=== PATIENT | female | born 1945 | race Caucasian/White ===

== ENCOUNTER 2018-04-02 18:08 | Emergency (ER) | payer MEDICARE, MEDICAID, SELFPAY ==
[2018-04-02 18:14] VITALS: BP 166/82; PULSE 87; RESP 16; TEMP 37.2; O2SAT 97; BMI 29.6
[2018-04-02 18:29] VITALS: BP 166/82; PULSE 80; RESP 16; O2SAT 97
--- NOTE | 2018-04-02 18:29 | DI.RAD.S_ITS ---
PROCEDURE: XR CHEST 2V INDICATIONS: 72 year-old female with fever and recent bronchitis. TECHNIQUE: 2 views of the chest were acquired. COMPARISON: [facility], CR, XR CHEST 2VW, 04/01/2017, 14:24. [facility], CR, CHEST 1 VIEW, 07/31/2016, 14:36. [facility], CR, CHEST 2 VIEW, 12/04/2014, 19:23. FINDINGS: Surgical changes and devices: None. Lungs and pleura: No pleural effusions or pneumothorax. Lungs are clear. Mediastinum: Mediastinal contours are normal. Heart size is normal. Bones and chest wall: No suspicious bony abnormalities. Soft tissues appear unremarkable. IMPRESSION: No acute cardiopulmonary disease. Dictated by: Jakub De Luna M.D. on 04/02/2018 at 19:08 Approved by: Jakub De Luna M.D. on 04/02/2018 at 19:09
--- NOTE | 2018-04-02 18:30 | ED.CHESTPAIN ---
HPI - Chest Pain <ODILON Espinoza - Last Filed: 04/02/18 22:35> General Chief Complaint: Chest Pain Stated Complaint: chest pains,possible pneumonia Time Seen by Provider: 04/02/18 18:30 History of Present Illness HPI narrative: 72-year-old female here for complaint of having cough over the last several days. She was seen by her primary care provider and she was treated with cefuroxime. She reports that the cough has actually improved over the past couple of days with less productive cough. She also reports that she had a fever over the last several days and the fever has also improved today. She is here due to complaint of feeling ill such as dizziness with nausea and some weakness. She reports at time of exam and she is actually feeling better. She is able speak in full sentences. No acute distress. She states she is tolerating fluids however she has not been eating much over the past couple of days due to the nausea. Related Data Home Medications Medication Instructions Recorded Confirmed guaifenesin [Mucinex] 600 mg PO Q12HP PRN #0 ter 07/31/16 04/02/18 cefuroxime axetil 500 mg PO BID 04/02/18 04/02/18 levothyroxine 25 mcg PO DAILY 04/02/18 04/02/18 Previous Rx's Medication Instructions Recorded ondansetron HCl [Zofran] 4 mg PO Q6H PRN #5 tab 04/02/18 Allergies Allergy/AdvReac Type Severity Reaction Status Date / Time ofloxacin Allergy Verified 04/02/18 18:31 ANTIBIOTIC FOR EYE Allergy Unknown Uncoded 02/12/18 13:03 Review of Systems <ODILON Espinoza - Last Filed: 04/02/18 22:35> Constitutional Reports fever(s) and Reports weakness Eyes Denies change in vision, Denies eye discharge, Denies irritation and Denies loss of vision ENT Ears, Nose, Mouth, and Throat: Reports dizziness and Reports nasal congestion Cardiovascular Denies chest pain, Denies irregular heart rhythm, Denies lightheadedness, Denies palpitations and Denies orthopnea Respiratory Reports cough Gastrointestinal Gastrointestinal: Denies abdominal pain, Denies change in bowel habits, Denies diarrhea, Denies nausea and Denies vomiting Genitourinary Denies hematuria, Denies flank pain, Denies urinary incontinence and Denies urinary urgency Musculoskeletal Denies back pain, Denies muscle weakness, Denies numbness and Denies tingling Integumentary/Breasts Denies pruritus, Denies erythema, Denies rash and Denies wounds Neurologic Denies confusion, Reports dizziness, Denies loss of vision, Denies numbness, Denies tingling and Reports weakness Psychiatric Denies anxiety, Denies confusion, Denies depression, Denies homicidal ideation and Denies suicidal ideation Endocrine Denies palpitations Exam <ODILON Espinoza - Last Filed: 04/02/18 22:35> Initial Vital Signs Initial Vital Signs: Vital Signs Temperature 98.9 F 04/02/18 18:14 Pulse Rate 87 04/02/18 18:14 Respiratory Rate 16 04/02/18 18:14 Blood Pressure 166/82 H 04/02/18 18:14 Pulse Oximetry 97 04/02/18 18:14 Const General: cooperative and well developed Nutritional Appearance: well nourished Orientation: alert, awake, oriented x3 and not confused HENMT Mouth: oral mucosae normal and oropharynx normal Eyes Conjunctivae: conjunctivae normal Sclera: sclerae normal Pupils: PERRL EOM: EOM intact bilaterally Resp Effort & Inspection: normal respiratory effort, able to speak in complete sentences, no respiratory distress and no use of accessory muscles Auscultation: clear to auscultation bilaterally, no rales, no rhonchi and no wheezes Cardio Rate: regular rate Rhythm: regular rhythm Heart Sounds: no click, no gallops, no murmurs and no rubs Skin General: no rashes or lesions noted, No jaundice and No petechiae Neuro General: alert, oriented x3, gait normal and no focal motor deficits Speech: speech normal Extrem General: full ROM, no clubbing, cyanosis or edema, no pedal edema and no calf tenderness <Amarjit Cuellar DO - Last Filed: 04/02/18 22:49> Initial Vital Signs Initial Vital Signs: Vital Signs Temperature 98.9 F 04/02/18 18:14 Pulse Rate 87 04/02/18 18:14 Respiratory Rate 16 04/02/18 18:14 Blood Pressure 166/82 H 04/02/18 18:14 Pulse Oximetry 97 04/02/18 18:14 Course <ODILON Espinoza - Last Filed: 04/02/18 22:35> Orders Ordered: ED Orders 04/02/18 18:29 Chest [XR chest 2V] Stat 04/02/18 18:30 EKG-12 Lead Stat 04/02/18 18:32 CT head/brain wo con Stat 04/02/18 18:40 B Type Natriuretic Peptide Stat Complete Blood Count AUTO DIFF Stat Comprehensive Metabolic Panel Stat Lactate (Lactic Acid) Stat Lipase Stat Partial Thromboplastin Time Stat Procalcitonin Stat Prothrombin Time INR Stat Troponin with CK Cardiac Panel Stat 04/02/18 19:40 Blood Culture Stat Discontinued Medications Sodium Chloride (Normal Saline 0.9%) 1,000 mls @ 1,000 mls/hr IV BOLUS ONE Stop: 04/02/18 19:28 Last Infusion: 04/02/18 20:00 Dose: 0 mls/hr Admin: 04/02/18 18:44 Dose: 1,000 mls/hr Ondansetron HCl (Zofran) 4 mg IV NOW ONE Stop: 04/02/18 18:57 Last Admin: 04/02/18 18:59 Dose: 4 mg Ondansetron HCl (Zofran Odt Prepack) 1 bottle MISC SEEINSTR ONE Stop: 04/02/18 21:29 Last Admin: 04/02/18 21:45 Dose: 1 bottle Vital Signs - 8 hr 04/02/18 18:14 04/02/18 18:29 04/02/18 19:30 Temperature 98.9 F Pulse Rate 87 80 60 Respiratory Rate 16 16 Blood Pressure 166/82 H Blood Pressure [Left Arm] 166/82 H 142/57 H Pulse Oximetry 97 97 97 04/02/18 20:46 04/02/18 22:03 Temperature Pulse Rate 61 74 Respiratory Rate 15 15 Blood Pressure 149/79 H Blood Pressure [Left Arm] 153/80 H Pulse Oximetry 96 99 <Amarjit Cuellar DO - Last Filed: 04/02/18 22:49> Orders Ordered: ED Orders 04/02/18 18:29 Chest [XR chest 2V] Stat 04/02/18 18:30 EKG-12 Lead Stat 04/02/18 18:32 CT head/brain wo con Stat 04/02/18 18:40 B Type Natriuretic Peptide Stat Complete Blood Count AUTO DIFF Stat Comprehensive Metabolic Panel Stat Lactate (Lactic Acid) Stat Lipase Stat Partial Thromboplastin Time Stat Procalcitonin Stat Prothrombin Time INR Stat Troponin with CK Cardiac Panel Stat 04/02/18 19:40 Blood Culture Stat Discontinued Medications Sodium Chloride (Normal Saline 0.9%) 1,000 mls @ 1,000 mls/hr IV BOLUS ONE Stop: 04/02/18 19:28 Last Infusion: 04/02/18 20:00 Dose: 0 mls/hr Admin: 04/02/18 18:44 Dose: 1,000 mls/hr Ondansetron HCl (Zofran) 4 mg IV NOW ONE Stop: 04/02/18 18:57 Last Admin: 04/02/18 18:59 Dose: 4 mg Ondansetron HCl (Zofran Odt Prepack) 1 bottle MISC SEEINSTR ONE Stop: 04/02/18 21:29 Last Admin: 04/02/18 21:45 Dose: 1 bottle Vital Signs - 8 hr 04/02/18 18:14 04/02/18 18:29 04/02/18 19:30 Temperature 98.9 F Pulse Rate 87 80 60 Respiratory Rate 16 16 Blood Pressure 166/82 H Blood Pressure [Left Arm] 166/82 H 142/57 H Pulse Oximetry 97 97 97 04/02/18 20:46 04/02/18 22:03 Temperature Pulse Rate 61 74 Respiratory Rate 15 15 Blood Pressure 149/79 H Blood Pressure [Left Arm] 153/80 H Pulse Oximetry 96 99 MDM - Chest Pain <ODILON Espinoza - Last Filed: 04/02/18 22:35> Lab Data Result diagrams: 04/02/18 18:40 04/02/18 18:40 Lab Results 04/02/18 04/02/18 04/02/18 Range/Units 18:40 18:40 18:40 WBC 6.1 (4.5-11.0) X10^3/uL RBC 4.84 (4.0-5.2) X10^6/uL Hgb 14.9 (12.0-16.0) g/dL Hct 43.4 (36-46) % MCV 89.7 (80-100) fL MCH 30.8 (26-34) PG MCHC 34.3 (30-36) % RDW 13.3 (11.6-14.8) % Plt Count 260 (150-400) X10^3/uL Neut % (Auto) 56.1 (50-75) % Lymph % (Auto) 35.6 (25-40) % [place] % (Auto) 5.9 (3-14) % Eos % (Auto) 1.8 L (2-4) % Baso % (Auto) 0.6 (0-2) % Neut # (Auto) 3400 (0426-9720) /uL PT 12.1 (10.1-12.7) SECONDS INR 1.1 (0.9-1.3) APTT 30 (26.4-36.2) SECONDS Sodium (137-145) mmol/L Potassium (3.4-5.1) mmol/L Chloride (98-107) mmol/L Carbon Dioxide (22-32) mmol/L BUN (7-17) mg/dL Creatinine (0.52-1.04) mg/dL Estimated GFR (>60) mL/min BUN/Creatinine Ratio (6-22) Glucose (80-110) mg/dL Lactate (0.7-2.1) mmol/L Calcium (8.4-10.2) mg/dL Total Bilirubin (0.2-1.3) mg/dL AST (14-36) IU/L ALT (9-52) IU/L Alkaline Phosphatase (38-126) U/L Total Creatine Kinase (30-135) U/L Troponin I (0.01-0.034) ng/mL B-Natriuretic Peptide (<29.3) Total Protein (6.3-8.2) g/dL Albumin (3.5-5.0) g/dL Globulin (1.7-4.1) g/dL Albumin/Globulin Ratio (1.0-2.8) Lipase (23-300) U/L Procalcitonin < 0.05 (<0.5) ng/mL 04/02/18 04/02/18 04/02/18 Range/Units 18:40 18:40 18:40 WBC (4.5-11.0) X10^3/uL RBC (4.0-5.2) X10^6/uL Hgb (12.0-16.0) g/dL Hct (36-46) % MCV (80-100) fL MCH (26-34) PG MCHC (30-36) % RDW (11.6-14.8) % Plt Count (150-400) X10^3/uL Neut % (Auto) (50-75) % Lymph % (Auto) (25-40) % [place] % (Auto) (3-14) % Eos % (Auto) (2-4) % Baso % (Auto) (0-2) % Neut # (Auto) (2356-6916) /uL PT (10.1-12.7) SECONDS INR (0.9-1.3) APTT (26.4-36.2) SECONDS Sodium 138 (137-145) mmol/L Potassium 3.9 (3.4-5.1) mmol/L Chloride 102 (98-107) mmol/L Carbon Dioxide 23 (22-32) mmol/L BUN 13 (7-17) mg/dL Creatinine 0.70 (0.52-1.04) mg/dL Estimated GFR > 60.0 (>60) mL/min BUN/Creatinine Ratio 18.6 (6-22) Glucose 106 (80-110) mg/dL Lactate 1.1 (0.7-2.1) mmol/L Calcium 9.7 (8.4-10.2) mg/dL Total Bilirubin 0.9 (0.2-1.3) mg/dL AST 34 (14-36) IU/L ALT 23 (9-52) IU/L Alkaline Phosphatase 85 (38-126) U/L Total Creatine Kinase 53 (30-135) U/L Troponin I < 0.012 (0.01-0.034) ng/mL B-Natriuretic Peptide (<29.3) Total Protein 7.6 (6.3-8.2) g/dL Albumin 4.1 (3.5-5.0) g/dL Globulin 3.5 (1.7-4.1) g/dL Albumin/Globulin Ratio 1.2 (1.0-2.8) Lipase 105 (23-300) U/L Procalcitonin (<0.5) ng/mL 04/02/18 Range/Units 18:40 WBC (4.5-11.0) X10^3/uL RBC (4.0-5.2) X10^6/uL Hgb (12.0-16.0) g/dL Hct (36-46) % MCV (80-100) fL MCH (26-34) PG MCHC (30-36) % RDW (11.6-14.8) % Plt Count (150-400) X10^3/uL Neut % (Auto) (50-75) % Lymph % (Auto) (25-40) % [place] % (Auto) (3-14) % Eos % (Auto) (2-4) % Baso % (Auto) (0-2) % Neut # (Auto) (7511-7025) /uL PT (10.1-12.7) SECONDS INR (0.9-1.3) APTT (26.4-36.2) SECONDS Sodium (137-145) mmol/L Potassium (3.4-5.1) mmol/L Chloride (98-107) mmol/L Carbon Dioxide (22-32) mmol/L BUN (7-17) mg/dL Creatinine (0.52-1.04) mg/dL Estimated GFR (>60) mL/min BUN/Creatinine Ratio (6-22) Glucose (80-110) mg/dL Lactate (0.7-2.1) mmol/L Calcium (8.4-10.2) mg/dL Total Bilirubin (0.2-1.3) mg/dL AST (14-36) IU/L ALT (9-52) IU/L Alkaline Phosphatase (38-126) U/L Total Creatine Kinase (30-135) U/L Troponin I (0.01-0.034) ng/mL B-Natriuretic Peptide 85.2 (<29.3) Total Protein (6.3-8.2) g/dL Albumin (3.5-5.0) g/dL Globulin (1.7-4.1) g/dL Albumin/Globulin Ratio (1.0-2.8) Lipase (23-300) U/L Procalcitonin (<0.5) ng/mL Imaging Data CT scan - head: Radiologist's impression: PROCEDURE: CT HEAD/BRAIN WO CON INDICATIONS: 72 year-old female with weakness and dizziness for one week. TECHNIQUE: Noncontrast 4.5 mm thick angled axial sections acquired from the foramen magnum to the vertex, with coronal and sagittal reformats. For radiation dose reduction, the following was used: automated exposure control, adjustment of mA and/or kV according to patient size. COMPARISON: None. FINDINGS: Image quality: Excellent. CSF spaces: Basal cisterns are patent. No extra-axial fluid collections. The ventricles are symmetric in size and shape. Brain: No intracranial bleeds. A heterogeneously calcified 8 mm extra axial mass is situated superior to the left frontal lobe convexity, best seen on coronal image 27 and sagittal image 15. There are mild periventricular white matter chronic small vessel ischemic changes. There is intracranial internal carotid artery atherosclerosis. Skull and face: Calvarium and visualized facial bones appear intact, without suspicious lesions. Sinuses: Visualized sinuses and mastoids are clear. IMPRESSION: 1. No acute intracranial abnormalities. Mild periventricular white matter chronic small vessel ischemic change. 2. 8 mm heterogeneously calcified extra-axial mass superior to the left frontal lobe convexity, consistent with small meningioma. Dictated by: Jakub De Luna M.D. on 04/02/2018 at 19:09 Approved by: Jakub De Luna M.D. on 04/02/2018 at 19:14 Chest x-ray: Radiologist's impression: PROCEDURE: XR CHEST 2V INDICATIONS: 72 year-old female with fever and recent bronchitis. TECHNIQUE: 2 views of the chest were acquired. COMPARISON: [facility], , XR CHEST 2VW, 04/01/2017, 14:24. [facility], CHEST 1 VIEW, 07/31/2016, 14:36. [facility], , CHEST 2 VIEW, 12/04/2014, 19:23. FINDINGS: Surgical changes and devices: None. Lungs and pleura: No pleural effusions or pneumothorax. Lungs are clear. Mediastinum: Mediastinal contours are normal. Heart size is normal. Bones and chest wall: No suspicious bony abnormalities. Soft tissues appear unremarkable. IMPRESSION: No acute cardiopulmonary disease. Dictated by: Jakub De Luna M.D. on 04/02/2018 at 19:08 Approved by: Jakub De Luna M.D. on 04/02/2018 at 19:09 ECG Data Interpretation: EKG shows normal sinus rhythm with no ST elevation or depression. No ectopy. Ventricular rate is 71. Pr interval of 145. QRS duration is 77. QT 364. MDM Narrative Medical decision making narrative: CT of the head was obtained was negative for any acute findings incidental finding of a small meningioma to the left frontal lobe. Chest x-ray was negative for any acute findings. EKG shows normal sinus rhythm with no ST elevation or depression. Patient's symptoms have resolved after giving some nausea medicine. She was able ambulate around the emergency room with no complications. Believe that she is getting better from recent illness. Will have her continue taking current medications as prescribed. She is prescribed Zofran to help with the nausea. She is encouraged to eat well and drink well. Follow up with the primary care provider in the next couple of days. For further evaluation and supervision of the meningioma. For any worsening symptoms return to the emergency room. <Amarjit Cuellar, DO - Last Filed: 04/02/18 22:49> Lab Data Lab Results 04/02/18 04/02/18 04/02/18 Range/Units 18:40 18:40 18:40 WBC 6.1 (4.5-11.0) X10^3/uL RBC 4.84 (4.0-5.2) X10^6/uL Hgb 14.9 (12.0-16.0) g/dL Hct 43.4 (36-46) % MCV 89.7 (80-100) fL MCH 30.8 (26-34) PG MCHC 34.3 (30-36) % RDW 13.3 (11.6-14.8) % Plt Count 260 (150-400) X10^3/uL Neut % (Auto) 56.1 (50-75) % Lymph % (Auto) 35.6 (25-40) % [place] % (Auto) 5.9 (3-14) % Eos % (Auto) 1.8 L (2-4) % Baso % (Auto) 0.6 (0-2) % Neut # (Auto) 3400 (5339-9092) /uL PT 12.1 (10.1-12.7) SECONDS INR 1.1 (0.9-1.3) APTT 30 (26.4-36.2) SECONDS Sodium (137-145) mmol/L Potassium (3.4-5.1) mmol/L Chloride (98-107) mmol/L Carbon Dioxide (22-32) mmol/L BUN (7-17) mg/dL Creatinine (0.52-1.04) mg/dL Estimated GFR (>60) mL/min BUN/Creatinine Ratio (6-22) Glucose (80-110) mg/dL Lactate (0.7-2.1) mmol/L Calcium (8.4-10.2) mg/dL Total Bilirubin (0.2-1.3) mg/dL AST (14-36) IU/L ALT (9-52) IU/L Alkaline Phosphatase (38-126) U/L Total Creatine Kinase (30-135) U/L Troponin I (0.01-0.034) ng/mL B-Natriuretic Peptide (<29.3) Total Protein (6.3-8.2) g/dL Albumin (3.5-5.0) g/dL Globulin (1.7-4.1) g/dL Albumin/Globulin Ratio (1.0-2.8) Lipase (23-300) U/L Procalcitonin < 0.05 (<0.5) ng/mL 04/02/18 04/02/18 04/02/18 Range/Units 18:40 18:40 18:40 WBC (4.5-11.0) X10^3/uL RBC (4.0-5.2) X10^6/uL Hgb (12.0-16.0) g/dL Hct (36-46) % MCV (80-100) fL MCH (26-34) PG MCHC (30-36) % RDW (11.6-14.8) % Plt Count (150-400) X10^3/uL Neut % (Auto) (50-75) % Lymph % (Auto) (25-40) % [place] % (Auto) (3-14) % Eos % (Auto) (2-4) % Baso % (Auto) (0-2) % Neut # (Auto) (4856-8670) /uL PT (10.1-12.7) SECONDS INR (0.9-1.3) APTT (26.4-36.2) SECONDS Sodium 138 (137-145) mmol/L Potassium 3.9 (3.4-5.1) mmol/L Chloride 102 (98-107) mmol/L Carbon Dioxide 23 (22-32) mmol/L BUN 13 (7-17) mg/dL Creatinine 0.70 (0.52-1.04) mg/dL Estimated GFR > 60.0 (>60) mL/min BUN/Creatinine Ratio 18.6 (6-22) Glucose 106 (80-110) mg/dL Lactate 1.1 (0.7-2.1) mmol/L Calcium 9.7 (8.4-10.2) mg/dL Total Bilirubin 0.9 (0.2-1.3) mg/dL AST 34 (14-36) IU/L ALT 23 (9-52) IU/L Alkaline Phosphatase 85 (38-126) U/L Total Creatine Kinase 53 (30-135) U/L Troponin I < 0.012 (0.01-0.034) ng/mL B-Natriuretic Peptide (<29.3) Total Protein 7.6 (6.3-8.2) g/dL Albumin 4.1 (3.5-5.0) g/dL Globulin 3.5 (1.7-4.1) g/dL Albumin/Globulin Ratio 1.2 (1.0-2.8) Lipase 105 (23-300) U/L Procalcitonin (<0.5) ng/mL 04/02/18 Range/Units 18:40 WBC (4.5-11.0) X10^3/uL RBC (4.0-5.2) X10^6/uL Hgb (12.0-16.0) g/dL Hct (36-46) % MCV (80-100) fL MCH (26-34) PG MCHC (30-36) % RDW (11.6-14.8) % Plt Count (150-400) X10^3/uL Neut % (Auto) (50-75) % Lymph % (Auto) (25-40) % [place] % (Auto) (3-14) % Eos % (Auto) (2-4) % Baso % (Auto) (0-2) % Neut # (Auto) (5898-8992) /uL PT (10.1-12.7) SECONDS INR (0.9-1.3) APTT (26.4-36.2) SECONDS Sodium (137-145) mmol/L Potassium (3.4-5.1) mmol/L Chloride (98-107) mmol/L Carbon Dioxide (22-32) mmol/L BUN (7-17) mg/dL Creatinine (0.52-1.04) mg/dL Estimated GFR (>60) mL/min BUN/Creatinine Ratio (6-22) Glucose (80-110) mg/dL Lactate (0.7-2.1) mmol/L Calcium (8.4-10.2) mg/dL Total Bilirubin (0.2-1.3) mg/dL AST (14-36) IU/L ALT (9-52) IU/L Alkaline Phosphatase (38-126) U/L Total Creatine Kinase (30-135) U/L Troponin I (0.01-0.034) ng/mL B-Natriuretic Peptide 85.2 (<29.3) Total Protein (6.3-8.2) g/dL Albumin (3.5-5.0) g/dL Globulin (1.7-4.1) g/dL Albumin/Globulin Ratio (1.0-2.8) Lipase (23-300) U/L Procalcitonin (<0.5) ng/mL Discharge Plan Departure Patient Disposition: Home, Self-Care Clinical Impression: Bronchitis, Meningioma Discharge Date/Time: 04/02/18 22:10 Interventions: ED Discharge Assessment Last Done: 04/02/18 22:03 Instructions: Acute Bronchitis, Meningioma Activity Restrictions/Additional Instructions: CT of the head was obtained and was negative for any acute findings. CT of the head does show an incidental finding of a small meningioma to the front left lobe. Follow up with primary care provider for further evaluation and supervision of this to ensure stable. Chest x-ray was negative for any acute findings. Laboratory results were unremarkable. Seems her symptoms have resolved somewhat. Believe symptoms are secondary to recent illness plenty of fluids ensure ureter eating well. Her prescribed Zofran to help with the nausea use as directed. Follow up with your doctor in the next couple days. For any worsening symptoms return to the emergency room. Prescriptions: New ondansetron HCl [Zofran] 4 mg tablet 4 mg PO Q6H PRN (Reason: nausea) Qty: 5 RF: 0 No Action guaifenesin [Mucinex] 600 MG tablet extended release 12hr 600 mg PO Q12HP PRN (Reason: Cough) Qty: 0 RF: 0 levothyroxine 25 mcg tablet 25 mcg PO DAILY RF: 0 cefuroxime axetil 500 mg tablet 500 mg PO BID RF: 0 Referrals: Blas Dorsey MD [Primary Care Provider] - <Amarjit Cuellar DO - Last Filed: 04/02/18 22:49> Cosign ED Attending Ebony Attestation: I was available for consultation during this patient's emergency department encounter
--- NOTE | 2018-04-02 18:34 | ED_ITS ---
HPI - Chest Pain <ODILON Espinoza - Last Filed: 04/02/18 22:35> General Chief Complaint: Chest Pain Stated Complaint: chest pains,possible pneumonia Time Seen by Provider: 04/02/18 18:30 History of Present Illness HPI narrative: 72-year-old female here for complaint of having cough over the last several days. She was seen by her primary care provider and she was treated with cefuroxime. She reports that the cough has actually improved over the past couple of days with less productive cough. She also reports that she had a fever over the last several days and the fever has also improved today. She is here due to complaint of feeling ill such as dizziness with nausea and some weakness. She reports at time of exam and she is actually feeling better. She is able speak in full sentences. No acute distress. She states she is tolerating fluids however she has not been eating much over the past couple of days due to the nausea. Related Data Home Medications Medication Instructions Recorded Confirmed guaifenesin [Mucinex] 600 mg PO Q12HP PRN #0 ter 07/31/16 04/02/18 cefuroxime axetil 500 mg PO BID 04/02/18 04/02/18 levothyroxine 25 mcg PO DAILY 04/02/18 04/02/18 Previous Rx's Medication Instructions Recorded ondansetron HCl [Zofran] 4 mg PO Q6H PRN #5 tab 04/02/18 Allergies Allergy/AdvReac Type Severity Reaction Status Date / Time ofloxacin Allergy Verified 04/02/18 18:31 ANTIBIOTIC FOR EYE Allergy Unknown Uncoded 02/12/18 13:03 Review of Systems <ODILON Espinoza - Last Filed: 04/02/18 22:35> Constitutional Reports fever(s) and Reports weakness Eyes Denies change in vision, Denies eye discharge, Denies irritation and Denies loss of vision ENT Ears, Nose, Mouth, and Throat: Reports dizziness and Reports nasal congestion Cardiovascular Denies chest pain, Denies irregular heart rhythm, Denies lightheadedness, Denies palpitations and Denies orthopnea Respiratory Reports cough Gastrointestinal Gastrointestinal: Denies abdominal pain, Denies change in bowel habits, Denies diarrhea, Denies nausea and Denies vomiting Genitourinary Denies hematuria, Denies flank pain, Denies urinary incontinence and Denies urinary urgency Musculoskeletal Denies back pain, Denies muscle weakness, Denies numbness and Denies tingling Integumentary/Breasts Denies pruritus, Denies erythema, Denies rash and Denies wounds Neurologic Denies confusion, Reports dizziness, Denies loss of vision, Denies numbness, Denies tingling and Reports weakness Psychiatric Denies anxiety, Denies confusion, Denies depression, Denies homicidal ideation and Denies suicidal ideation Endocrine Denies palpitations Exam <ODILON Espinoza - Last Filed: 04/02/18 22:35> Initial Vital Signs Initial Vital Signs: Vital Signs Temperature 98.9 F 04/02/18 18:14 Pulse Rate 87 04/02/18 18:14 Respiratory Rate 16 04/02/18 18:14 Blood Pressure 166/82 H 04/02/18 18:14 Pulse Oximetry 97 04/02/18 18:14 Const General: cooperative and well developed Nutritional Appearance: well nourished Orientation: alert, awake, oriented x3 and not confused HENMT Mouth: oral mucosae normal and oropharynx normal Eyes Conjunctivae: conjunctivae normal Sclera: sclerae normal Pupils: PERRL EOM: EOM intact bilaterally Resp Effort & Inspection: normal respiratory effort, able to speak in complete sentences, no respiratory distress and no use of accessory muscles Auscultation: clear to auscultation bilaterally, no rales, no rhonchi and no wheezes Cardio Rate: regular rate Rhythm: regular rhythm Heart Sounds: no click, no gallops, no murmurs and no rubs Skin General: no rashes or lesions noted, No jaundice and No petechiae Neuro General: alert, oriented x3, gait normal and no focal motor deficits Speech: speech normal Extrem General: full ROM, no clubbing, cyanosis or edema, no pedal edema and no calf tenderness <Amarjit Cuellar DO - Last Filed: 04/02/18 22:49> Initial Vital Signs Initial Vital Signs: Vital Signs Temperature 98.9 F 04/02/18 18:14 Pulse Rate 87 04/02/18 18:14 Respiratory Rate 16 04/02/18 18:14 Blood Pressure 166/82 H 04/02/18 18:14 Pulse Oximetry 97 04/02/18 18:14 Course <ODILON Espinoza - Last Filed: 04/02/18 22:35> Orders Ordered: ED Orders 04/02/18 18:29 Chest [XR chest 2V] Stat 04/02/18 18:30 EKG-12 Lead Stat 04/02/18 18:32 CT head/brain wo con Stat 04/02/18 18:40 B Type Natriuretic Peptide Stat Complete Blood Count AUTO DIFF Stat Comprehensive Metabolic Panel Stat Lactate (Lactic Acid) Stat Lipase Stat Partial Thromboplastin Time Stat Procalcitonin Stat Prothrombin Time INR Stat Troponin with CK Cardiac Panel Stat 04/02/18 19:40 Blood Culture Stat Discontinued Medications Sodium Chloride (Normal Saline 0.9%) 1,000 mls @ 1,000 mls/hr IV BOLUS ONE Stop: 04/02/18 19:28 Last Infusion: 04/02/18 20:00 Dose: 0 mls/hr Admin: 04/02/18 18:44 Dose: 1,000 mls/hr Ondansetron HCl (Zofran) 4 mg IV NOW ONE Stop: 04/02/18 18:57 Last Admin: 04/02/18 18:59 Dose: 4 mg Ondansetron HCl (Zofran Odt Prepack) 1 bottle MISC SEEINSTR ONE Stop: 04/02/18 21:29 Last Admin: 04/02/18 21:45 Dose: 1 bottle Vital Signs - 8 hr 04/02/18 18:14 04/02/18 18:29 04/02/18 19:30 Temperature 98.9 F Pulse Rate 87 80 60 Respiratory Rate 16 16 Blood Pressure 166/82 H Blood Pressure [Left Arm] 166/82 H 142/57 H Pulse Oximetry 97 97 97 04/02/18 20:46 04/02/18 22:03 Temperature Pulse Rate 61 74 Respiratory Rate 15 15 Blood Pressure 149/79 H Blood Pressure [Left Arm] 153/80 H Pulse Oximetry 96 99 <Amarjit Cuellar DO - Last Filed: 04/02/18 22:49> Orders Ordered: ED Orders 04/02/18 18:29 Chest [XR chest 2V] Stat 04/02/18 18:30 EKG-12 Lead Stat 04/02/18 18:32 CT head/brain wo con Stat 04/02/18 18:40 B Type Natriuretic Peptide Stat Complete Blood Count AUTO DIFF Stat Comprehensive Metabolic Panel Stat Lactate (Lactic Acid) Stat Lipase Stat Partial Thromboplastin Time Stat Procalcitonin Stat Prothrombin Time INR Stat Troponin with CK Cardiac Panel Stat 04/02/18 19:40 Blood Culture Stat Discontinued Medications Sodium Chloride (Normal Saline 0.9%) 1,000 mls @ 1,000 mls/hr IV BOLUS ONE Stop: 04/02/18 19:28 Last Infusion: 04/02/18 20:00 Dose: 0 mls/hr Admin: 04/02/18 18:44 Dose: 1,000 mls/hr Ondansetron HCl (Zofran) 4 mg IV NOW ONE Stop: 04/02/18 18:57 Last Admin: 04/02/18 18:59 Dose: 4 mg Ondansetron HCl (Zofran Odt Prepack) 1 bottle MISC SEEINSTR ONE Stop: 04/02/18 21:29 Last Admin: 04/02/18 21:45 Dose: 1 bottle Vital Signs - 8 hr 04/02/18 18:14 04/02/18 18:29 04/02/18 19:30 Temperature 98.9 F Pulse Rate 87 80 60 Respiratory Rate 16 16 Blood Pressure 166/82 H Blood Pressure [Left Arm] 166/82 H 142/57 H Pulse Oximetry 97 97 97 04/02/18 20:46 04/02/18 22:03 Temperature Pulse Rate 61 74 Respiratory Rate 15 15 Blood Pressure 149/79 H Blood Pressure [Left Arm] 153/80 H Pulse Oximetry 96 99 MDM - Chest Pain <ODILON Espinoza - Last Filed: 04/02/18 22:35> Lab Data Result diagrams: 04/02/18 18:40 04/02/18 18:40 Lab Results 04/02/18 04/02/18 04/02/18 Range/Units 18:40 18:40 18:40 WBC 6.1 (4.5-11.0) X10^3/uL RBC 4.84 (4.0-5.2) X10^6/uL Hgb 14.9 (12.0-16.0) g/dL Hct 43.4 (36-46) % MCV 89.7 (80-100) fL MCH 30.8 (26-34) PG MCHC 34.3 (30-36) % RDW 13.3 (11.6-14.8) % Plt Count 260 (150-400) X10^3/uL Neut % (Auto) 56.1 (50-75) % Lymph % (Auto) 35.6 (25-40) % [place] % (Auto) 5.9 (3-14) % Eos % (Auto) 1.8 L (2-4) % Baso % (Auto) 0.6 (0-2) % Neut # (Auto) 3400 (3019-6174) /uL PT 12.1 (10.1-12.7) SECONDS INR 1.1 (0.9-1.3) APTT 30 (26.4-36.2) SECONDS Sodium (137-145) mmol/L Potassium (3.4-5.1) mmol/L Chloride (98-107) mmol/L Carbon Dioxide (22-32) mmol/L BUN (7-17) mg/dL Creatinine (0.52-1.04) mg/dL Estimated GFR (>60) mL/min BUN/Creatinine Ratio (6-22) Glucose (80-110) mg/dL Lactate (0.7-2.1) mmol/L Calcium (8.4-10.2) mg/dL Total Bilirubin (0.2-1.3) mg/dL AST (14-36) IU/L ALT (9-52) IU/L Alkaline Phosphatase (38-126) U/L Total Creatine Kinase (30-135) U/L Troponin I (0.01-0.034) ng/mL B-Natriuretic Peptide (<29.3) Total Protein (6.3-8.2) g/dL Albumin (3.5-5.0) g/dL Globulin (1.7-4.1) g/dL Albumin/Globulin Ratio (1.0-2.8) Lipase (23-300) U/L Procalcitonin < 0.05 (<0.5) ng/mL 04/02/18 04/02/18 04/02/18 Range/Units 18:40 18:40 18:40 WBC (4.5-11.0) X10^3/uL RBC (4.0-5.2) X10^6/uL Hgb (12.0-16.0) g/dL Hct (36-46) % MCV (80-100) fL MCH (26-34) PG MCHC (30-36) % RDW (11.6-14.8) % Plt Count (150-400) X10^3/uL Neut % (Auto) (50-75) % Lymph % (Auto) (25-40) % [place] % (Auto) (3-14) % Eos % (Auto) (2-4) % Baso % (Auto) (0-2) % Neut # (Auto) (8102-5391) /uL PT (10.1-12.7) SECONDS INR (0.9-1.3) APTT (26.4-36.2) SECONDS Sodium 138 (137-145) mmol/L Potassium 3.9 (3.4-5.1) mmol/L Chloride 102 (98-107) mmol/L Carbon Dioxide 23 (22-32) mmol/L BUN 13 (7-17) mg/dL Creatinine 0.70 (0.52-1.04) mg/dL Estimated GFR > 60.0 (>60) mL/min BUN/Creatinine Ratio 18.6 (6-22) Glucose 106 (80-110) mg/dL Lactate 1.1 (0.7-2.1) mmol/L Calcium 9.7 (8.4-10.2) mg/dL Total Bilirubin 0.9 (0.2-1.3) mg/dL AST 34 (14-36) IU/L ALT 23 (9-52) IU/L Alkaline Phosphatase 85 (38-126) U/L Total Creatine Kinase 53 (30-135) U/L Troponin I < 0.012 (0.01-0.034) ng/mL B-Natriuretic Peptide (<29.3) Total Protein 7.6 (6.3-8.2) g/dL Albumin 4.1 (3.5-5.0) g/dL Globulin 3.5 (1.7-4.1) g/dL Albumin/Globulin Ratio 1.2 (1.0-2.8) Lipase 105 (23-300) U/L Procalcitonin (<0.5) ng/mL 04/02/18 Range/Units 18:40 WBC (4.5-11.0) X10^3/uL RBC (4.0-5.2) X10^6/uL Hgb (12.0-16.0) g/dL Hct (36-46) % MCV (80-100) fL MCH (26-34) PG MCHC (30-36) % RDW (11.6-14.8) % Plt Count (150-400) X10^3/uL Neut % (Auto) (50-75) % Lymph % (Auto) (25-40) % [place] % (Auto) (3-14) % Eos % (Auto) (2-4) % Baso % (Auto) (0-2) % Neut # (Auto) (9591-9782) /uL PT (10.1-12.7) SECONDS INR (0.9-1.3) APTT (26.4-36.2) SECONDS Sodium (137-145) mmol/L Potassium (3.4-5.1) mmol/L Chloride (98-107) mmol/L Carbon Dioxide (22-32) mmol/L BUN (7-17) mg/dL Creatinine (0.52-1.04) mg/dL Estimated GFR (>60) mL/min BUN/Creatinine Ratio (6-22) Glucose (80-110) mg/dL Lactate (0.7-2.1) mmol/L Calcium (8.4-10.2) mg/dL Total Bilirubin (0.2-1.3) mg/dL AST (14-36) IU/L ALT (9-52) IU/L Alkaline Phosphatase (38-126) U/L Total Creatine Kinase (30-135) U/L Troponin I (0.01-0.034) ng/mL B-Natriuretic Peptide 85.2 (<29.3) Total Protein (6.3-8.2) g/dL Albumin (3.5-5.0) g/dL Globulin (1.7-4.1) g/dL Albumin/Globulin Ratio (1.0-2.8) Lipase (23-300) U/L Procalcitonin (<0.5) ng/mL Imaging Data CT scan - head: Radiologist's impression: PROCEDURE: CT HEAD/BRAIN WO CON INDICATIONS: 72 year-old female with weakness and dizziness for one week. TECHNIQUE: Noncontrast 4.5 mm thick angled axial sections acquired from the foramen magnum to the vertex, with coronal and sagittal reformats. For radiation dose reduction, the following was used: automated exposure control, adjustment of mA and/or kV according to patient size. COMPARISON: None. FINDINGS: Image quality: Excellent. CSF spaces: Basal cisterns are patent. No extra-axial fluid collections. The ventricles are symmetric in size and shape. Brain: No intracranial bleeds. A heterogeneously calcified 8 mm extra axial mass is situated superior to the left frontal lobe convexity, best seen on coronal image 27 and sagittal image 15. There are mild periventricular white matter chronic small vessel ischemic changes. There is intracranial internal carotid artery atherosclerosis. Skull and face: Calvarium and visualized facial bones appear intact, without suspicious lesions. Sinuses: Visualized sinuses and mastoids are clear. IMPRESSION: 1. No acute intracranial abnormalities. Mild periventricular white matter chronic small vessel ischemic change. 2. 8 mm heterogeneously calcified extra-axial mass superior to the left frontal lobe convexity, consistent with small meningioma. Dictated by: Jakub De Luna M.D. on 04/02/2018 at 19:09 Approved by: Jakub De Luna M.D. on 04/02/2018 at 19:14 Chest x-ray: Radiologist's impression: PROCEDURE: XR CHEST 2V INDICATIONS: 72 year-old female with fever and recent bronchitis. TECHNIQUE: 2 views of the chest were acquired. COMPARISON: [facility], , XR CHEST 2VW, 04/01/2017, 14:24. [facility], CHEST 1 VIEW, 07/31/2016, 14:36. [facility], , CHEST 2 VIEW , 12/04/2014, 19:23. FINDINGS: Surgical changes and devices: None. Lungs and pleura: No pleural effusions or pneumothorax. Lungs are clear. Mediastinum: Mediastinal contours are normal. Heart size is normal. Bones and chest wall: No suspicious bony abnormalities. Soft tissues appear unremarkable. IMPRESSION: No acute cardiopulmonary disease. Dictated by: Jakub De Luna M.D. on 04/02/2018 at 19:08 Approved by: Jakub De Luna M.D. on 04/02/2018 at 19:09 ECG Data Interpretation: EKG shows normal sinus rhythm with no ST elevation or depression. No ectopy. Ventricular rate is 71. Pr interval of 145. QRS duration is 77. QT 364. MDM Narrative Medical decision making narrative: CT of the head was obtained was negative for any acute findings incidental finding of a small meningioma to the left frontal lobe. Chest x-ray was negative for any acute findings. EKG shows normal sinus rhythm with no ST elevation or depression. Patient's symptoms have resolved after giving some nausea medicine. She was able ambulate around the emergency room with no complications. Believe that she is getting better from recent illness. Will have her continue taking current medications as prescribed. She is prescribed Zofran to help with the nausea. She is encouraged to eat well and drink well. Follow up with the primary care provider in the next couple of days. For further evaluation and supervision of the meningioma. For any worsening symptoms return to the emergency room. <Amarjit Cuellar, DO - Last Filed: 04/02/18 22:49> Lab Data Lab Results 04/02/18 04/02/18 04/02/18 Range/Units 18:40 18:40 18:40 WBC 6.1 (4.5-11.0) X10^3/uL RBC 4.84 (4.0-5.2) X10^6/uL Hgb 14.9 (12.0-16.0) g/dL Hct 43.4 (36-46) % MCV 89.7 (80-100) fL MCH 30.8 (26-34) PG MCHC 34.3 (30-36) % RDW 13.3 (11.6-14.8) % Plt Count 260 (150-400) X10^3/uL Neut % (Auto) 56.1 (50-75) % Lymph % (Auto) 35.6 (25-40) % [place] % (Auto) 5.9 (3-14) % Eos % (Auto) 1.8 L (2-4) % Baso % (Auto) 0.6 (0-2) % Neut # (Auto) 3400 (9803-3423) /uL PT 12.1 (10.1-12.7) SECONDS INR 1.1 (0.9-1.3) APTT 30 (26.4-36.2) SECONDS Sodium (137-145) mmol/L Potassium (3.4-5.1) mmol/L Chloride (98-107) mmol/L Carbon Dioxide (22-32) mmol/L BUN (7-17) mg/dL Creatinine (0.52-1.04) mg/dL Estimated GFR (>60) mL/min BUN/Creatinine Ratio (6-22) Glucose (80-110) mg/dL Lactate (0.7-2.1) mmol/L Calcium (8.4-10.2) mg/dL Total Bilirubin (0.2-1.3) mg/dL AST (14-36) IU/L ALT (9-52) IU/L Alkaline Phosphatase (38-126) U/L Total Creatine Kinase (30-135) U/L Troponin I (0.01-0.034) ng/mL B-Natriuretic Peptide (<29.3) Total Protein (6.3-8.2) g/dL Albumin (3.5-5.0) g/dL Globulin (1.7-4.1) g/dL Albumin/Globulin Ratio (1.0-2.8) Lipase (23-300) U/L Procalcitonin < 0.05 (<0.5) ng/mL 04/02/18 04/02/18 04/02/18 Range/Units 18:40 18:40 18:40 WBC (4.5-11.0) X10^3/uL RBC (4.0-5.2) X10^6/uL Hgb (12.0-16.0) g/dL Hct (36-46) % MCV (80-100) fL MCH (26-34) PG MCHC (30-36) % RDW (11.6-14.8) % Plt Count (150-400) X10^3/uL Neut % (Auto) (50-75) % Lymph % (Auto) (25-40) % [place] % (Auto) (3-14) % Eos % (Auto) (2-4) % Baso % (Auto) (0-2) % Neut # (Auto) (8991-5151) /uL PT (10.1-12.7) SECONDS INR (0.9-1.3) APTT (26.4-36.2) SECONDS Sodium 138 (137-145) mmol/L Potassium 3.9 (3.4-5.1) mmol/L Chloride 102 (98-107) mmol/L Carbon Dioxide 23 (22-32) mmol/L BUN 13 (7-17) mg/dL Creatinine 0.70 (0.52-1.04) mg/dL Estimated GFR > 60.0 (>60) mL/min BUN/Creatinine Ratio 18.6 (6-22) Glucose 106 (80-110) mg/dL Lactate 1.1 (0.7-2.1) mmol/L Calcium 9.7 (8.4-10.2) mg/dL Total Bilirubin 0.9 (0.2-1.3) mg/dL AST 34 (14-36) IU/L ALT 23 (9-52) IU/L Alkaline Phosphatase 85 (38-126) U/L Total Creatine Kinase 53 (30-135) U/L Troponin I < 0.012 (0.01-0.034) ng/mL B-Natriuretic Peptide (<29.3) Total Protein 7.6 (6.3-8.2) g/dL Albumin 4.1 (3.5-5.0) g/dL Globulin 3.5 (1.7-4.1) g/dL Albumin/Globulin Ratio 1.2 (1.0-2.8) Lipase 105 (23-300) U/L Procalcitonin (<0.5) ng/mL 04/02/18 Range/Units 18:40 WBC (4.5-11.0) X10^3/uL RBC (4.0-5.2) X10^6/uL Hgb (12.0-16.0) g/dL Hct (36-46) % MCV (80-100) fL MCH (26-34) PG MCHC (30-36) % RDW (11.6-14.8) % Plt Count (150-400) X10^3/uL Neut % (Auto) (50-75) % Lymph % (Auto) (25-40) % [place] % (Auto) (3-14) % Eos % (Auto) (2-4) % Baso % (Auto) (0-2) % Neut # (Auto) (9483-3167) /uL PT (10.1-12.7) SECONDS INR (0.9-1.3) APTT (26.4-36.2) SECONDS Sodium (137-145) mmol/L Potassium (3.4-5.1) mmol/L Chloride (98-107) mmol/L Carbon Dioxide (22-32) mmol/L BUN (7-17) mg/dL Creatinine (0.52-1.04) mg/dL Estimated GFR (>60) mL/min BUN/Creatinine Ratio (6-22) Glucose (80-110) mg/dL Lactate (0.7-2.1) mmol/L Calcium (8.4-10.2) mg/dL Total Bilirubin (0.2-1.3) mg/dL AST (14-36) IU/L ALT (9-52) IU/L Alkaline Phosphatase (38-126) U/L Total Creatine Kinase (30-135) U/L Troponin I (0.01-0.034) ng/mL B-Natriuretic Peptide 85.2 (<29.3) Total Protein (6.3-8.2) g/dL Albumin (3.5-5.0) g/dL Globulin (1.7-4.1) g/dL Albumin/Globulin Ratio (1.0-2.8) Lipase (23-300) U/L Procalcitonin (<0.5) ng/mL Discharge Plan Departure Patient Disposition: Home, Self-Care Clinical Impression: Bronchitis, Meningioma Discharge Date/Time: 04/02/18 22:10 Interventions: ED Discharge Assessment Last Done: 04/02/18 22:03 Instructions: Acute Bronchitis, Meningioma Activity Restrictions/Additional Instructions: CT of the head was obtained and was negative for any acute findings. CT of the head does show an incidental finding of a small meningioma to the front left lobe. Follow up with primary care provider for further evaluation and supervision of this to ensure stable. Chest x-ray was negative for any acute findings. Laboratory results were unremarkable. Seems her symptoms have resolved somewhat. Believe symptoms are secondary to recent illness plenty of fluids ensure ureter eating well. Her prescribed Zofran to help with the nausea use as directed. Follow up with your doctor in the next couple days. For any worsening symptoms return to the emergency room. Prescriptions: New ondansetron HCl [Zofran] 4 mg tablet 4 mg PO Q6H PRN (Reason: nausea) Qty: 5 RF: 0 No Action guaifenesin [Mucinex] 600 MG tablet extended release 12hr 600 mg PO Q12HP PRN (Reason: Cough) Qty: 0 RF: 0 levothyroxine 25 mcg tablet 25 mcg PO DAILY RF: 0 cefuroxime axetil 500 mg tablet 500 mg PO BID RF: 0 Referrals: Blas Dorsey MD [Primary Care Provider] - <Amarjit Cuellar DO - Last Filed: 04/02/18 22:49> Cosign ED Attending Ebony Attestation: I was available for consultation during this patient's emergency department encounter
--- NOTE | 2018-04-02 18:34 | PC.NURSE ---
coughing non productive, cooperative wearing yellow mask.
[2018-04-02] MEDS: SODIUM CHLORIDE 0.9% 1,000 ML 1000 ML IV (18:44)
[2018-04-02] MEDS: ONDANSETRON 4 MG/2 ML INJ IV (18:59)
[2018-04-02 19:00] LABS: Add Manual Diff / Slide Review NO; Basophils Percent Auto 0.6 % (0-2); Eosinophils Percent Auto 1.8 % (2-4); Hematocrit 43.4 % (36-46); Hemoglobin 14.9 g/dL (12.0-16.0); Lymphocytes Percent Auto 35.6 % (25-40); Mean Corpuscular HGB Conc 34.3 % (30-36); Mean Corpuscular Hemoglobin 30.8 PG (26-34); Mean Corpuscular Volume 89.7 fL (80-100); Monocytes Percent Auto 5.9 % (3-14); Neutrophils Absolute Auto 3400 /uL (3000-5900); Neutrophils Percent Auto 56.1 % (50-75); Platelet Count 260 X10^3/uL (150-400); Red Blood Cell Count 4.84 X10^6/uL (4.0-5.2); Red Cell Distribution Width 13.3 % (11.6-14.8); White Blood Cell Count 6.1 X10^3/uL (4.5-11.0)
[2018-04-02 19:19] LABS: INR 1.1 (0.9-1.3); Prothrombin Time 12.1 SECONDS (10.1-12.7)
[2018-04-02 19:22] LABS: PTT Partial Thromboplastin Tim 30 SECONDS (26.4-36.2)
[2018-04-02 19:30] VITALS: BP 142/57; PULSE 60; O2SAT 97
[2018-04-02 19:37] LABS: Creatine Kinase 53 U/L (30-135)
[2018-04-02 19:40] LABS: B Type Natriuretic Peptide 85.2 (<29.3)
[2018-04-02 19:58] LABS: Troponin I < 0.012 ng/mL (0.01-0.034)
[2018-04-02 20:15] LABS: Procalcitonin < 0.05 ng/mL (<0.5)
[2018-04-02 20:16] LABS: Lactate (Lactic Acid) 1.1 mmol/L (0.7-2.1)
[2018-04-02 20:46] VITALS: BP 153/80; PULSE 61; RESP 15; O2SAT 96
[2018-04-02 21:02] LABS: Alanine Aminotransferase 23 IU/L (9-52); Albumin 4.1 g/dL (3.5-5.0); Albumin Globulin Ratio 1.2 (1.0-2.8); Alkaline Phosphatase 85 U/L (38-126); Aspartate Aminotransferase 34 IU/L (14-36); BUN Creatinine Ratio 18.6 (6-22); Bilirubin Total 0.9 mg/dL (0.2-1.3); Blood Urea Nitrogen 13 mg/dL (7-17); Calcium 9.7 mg/dL (8.4-10.2); Carbon Dioxide 23 mmol/L (22-32); Chloride 102 mmol/L (98-107); Estimated Glomerular Filt Rate > 60.0 mL/min (>60); Globulin 3.5 g/dL (1.7-4.1); Glucose 106 mg/dL (80-110); HEMOLYSIS < 15 (0-50); Lipase 105 U/L (23-300); Potassium 3.9 mmol/L (3.4-5.1); Sodium 138 mmol/L (137-145); Total Protein 7.6 g/dL (6.3-8.2)
[2018-04-02] MEDS: ONDANSETRON 4 MG ODT PREPACK 1 BOTTLE MISC (21:45)
[2018-04-02 22:03] VITALS: BP 149/79; PULSE 74; RESP 15; O2SAT 99
== END 2018-04-02 22:10 | disposition home or self-care (01) ==
PROVIDERS: Emergency Medicine; Emergency Provider Nurse Practitioner Family; Family Provider Family Medicine; PCP Family Medicine
DX: J40 Bronchitis, not specified as acute or chronic (principal); D32.9 Benign neoplasm of meninges, unspecified
CPT/HCPCS: 36415; 36591; 70450; 71046; 80053; 81003; 82550; 82553; 83605; 83690; 83880; 84145; 84484; 85025; 85610; 85730; 87040; 93005; 93041; 96361; 96374; 99283; 99285; J2405

== ENCOUNTER 2018-04-15 19:07 | Emergency (ER) | payer MEDICARE, MEDICAID, SELFPAY ==
[2018-04-15 19:13] VITALS: BP 137/85; PULSE 81; RESP 18; TEMP 37.2; O2SAT 98; BMI 28.8
[2018-04-15 19:37] VITALS: BP 118/86; PULSE 74; RESP 14; O2SAT 96
--- NOTE | 2018-04-15 19:40 | DI.RAD.S_ITS ---
PROCEDURE: XR CHEST 2V INDICATIONS: history of bronchitis getting worse TECHNIQUE: 2 views of the chest were acquired. COMPARISON: [facility], CR, XR CHEST 2V, 04/02/2018, 18:21. FINDINGS: Surgical changes and devices: None. Lungs and pleura: No pleural effusions or pneumothorax. Lungs are clear. Mediastinum: Mediastinal contours are normal. Heart size is normal. Bones and chest wall: No suspicious bony abnormalities. Soft tissues appear unremarkable. IMPRESSION: Normal for age. Source of current symptoms is not seen. Dictated by: Cordell Jeffers M.D. on 04/15/2018 at 20:12 Approved by: Cordell Jeffers M.D. on 04/15/2018 at 20:13
--- NOTE | 2018-04-15 19:57 | ED_ITS ---
HPI - Weakness General Chief complaint: Weakness Stated complaint: CHEST PAIN, HX BRONCHITIS Time Seen by Provider: 04/15/18 19:39 Source: patient Mode of arrival: ambulatory Limitations: no limitations History of Present Illness HPI Narrative: 72-year-old female here for evaluation of which she thinks is worsening of bronchitis and dehydration and possible mild nutrition. Patient states that she was diagnosed with bronchitis several weeks ago. She states that she feels like things are just getting worse. She has taken antibiotics for this. States she has felt very nauseous but has not vomited and has not eaten very much over the past several days. She states that she is still tolerating oral fluids. Related Data Home Medications Medication Instructions Recorded Confirmed guaifenesin [Mucinex] 600 mg PO Q12HP PRN #0 ter 07/31/16 04/02/18 cefuroxime axetil 500 mg PO BID 04/02/18 04/02/18 levothyroxine 25 mcg PO DAILY 04/02/18 04/02/18 Previous Rx's Medication Instructions Recorded ondansetron HCl [Zofran] 4 mg PO Q6H PRN #5 tab 04/02/18 Review of Systems Constitutional Denies chills, Reports fatigue, Reports fever(s), Denies headache(s), Reports lethargy and Denies weakness ENT Ears, Nose, Mouth, and Throat: Denies change in voice, Denies vertigo, Denies dizziness, Denies headache(s), Denies neck pain and Denies sore throat Cardiovascular Denies chest pain and Denies palpitations Respiratory Reports chest congestion, Reports cough and Denies wheezing Gastrointestinal Gastrointestinal: Denies constipation, Reports nausea and Denies vomiting Genitourinary Denies dysuria Musculoskeletal Denies neck pain Integumentary/Breasts Denies pruritus, Denies erythema, Denies rash and Denies wounds Neurologic Denies vertigo, Denies dizziness, Denies headache(s) and Denies weakness Endocrine Reports fatigue and Denies palpitations Hematologic/Lymphatic Denies easy bruising Allergic/Immunologic Denies wheezing [facility] Medical History Hypothyroid (Acute) Social History Smoking Status: Former smoker Exam Initial Vital Signs Initial Vital Signs: Vital Signs Temperature 99 F 04/15/18 19:13 Pulse Rate 81 04/15/18 19:13 Respiratory Rate 18 04/15/18 19:13 Blood Pressure 137/85 H 04/15/18 19:13 Pulse Oximetry 98 04/15/18 19:13 Const General: cooperative, healthy appearing, comfortable, well developed, well groomed and No acute distress Nutritional Appearance: well nourished Orientation: alert, awake, oriented x3 and not confused HENMT Head: normal to inspection, normocephalic and atraumatic Nose: external nose normal Face and sinus: normal facial exam Mouth: oral mucosae normal Resp Effort & Inspection: normal respiratory effort, able to speak in complete sentences, no cough, respiratory effort not decreased and no retractions Auscultation: clear to auscultation bilaterally, no rales and no rhonchi Cardio Rate: regular rate Rhythm: regular rhythm Pulses: radial pulses present GI Inspection: non-distended Palpation: soft Back/Spine/Pelvis Back: No CVA tenderness Skin General: no rashes or lesions noted, No jaundice and No petechiae Neuro General: alert, awake and oriented x3 Cognition: normal cognition Speech: speech normal Gait: normal gait Motor: muscle tone normal throughout Sensory Exam: no sensory deficits noted Extrem General: normal to inspection and full ROM Psych Appearance: grossly normal and well kempt Course Orders Ordered: Discontinued Medications Sodium Chloride (Normal Saline 0.9%) 1,000 mls @ 1,000 mls/hr IV BOLUS ONE Stop: 04/15/18 21:18 Last Infusion: 04/15/18 21:50 Dose: 1,000 mls/hr Admin: 04/15/18 20:45 Dose: 1,000 mls/hr Ondansetron HCl (Zofran) 4 mg IV NOW ONE Stop: 04/15/18 20:20 Last Admin: 04/15/18 20:45 Dose: 4 mg Vital Signs - 8 hr 04/15/18 22:09 Pulse Rate 65 Respiratory Rate 15 Blood Pressure [Right Arm] 114/95 H Pulse Oximetry 98 MDM - Weakness Medical Records Attestation: I reviewed the patient's medical records. Lab Data Attestation: I reviewed the patient's lab results. Result diagrams: 04/15/18 20:05 04/15/18 20:05 Lab Results 04/15/18 04/15/18 04/15/18 Range/Units 20:05 20:05 20:05 WBC 6.9 (4.5-11.0) X10^3/uL RBC 4.68 (4.0-5.2) X10^6/uL Hgb 14.3 (12.0-16.0) g/dL Hct 41.7 (36-46) % MCV 89.0 (80-100) fL MCH 30.5 (26-34) PG MCHC 34.3 (30-36) % RDW 13.0 (11.6-14.8) % Plt Count 283 (150-400) X10^3/uL Neut % (Auto) 64.6 (50-75) % Lymph % (Auto) 26.6 (25-40) % Kleberg % (Auto) 6.8 (3-14) % Eos % (Auto) 1.2 L (2-4) % Baso % (Auto) 0.8 (0-2) % Neut # (Auto) 4400 (7205-4537) /uL Sodium 141 (137-145) mmol/L Potassium 4.0 (3.4-5.1) mmol/L Chloride 104 (98-107) mmol/L Carbon Dioxide 26 (22-32) mmol/L BUN 17 (7-17) mg/dL Creatinine 0.70 (0.52-1.04) mg/dL Estimated GFR > 60.0 (>60) mL/min BUN/Creatinine Ratio 24.3 H (6-22) Glucose 103 (80-110) mg/dL Lactate (0.7-2.1) mmol/L Calcium 9.6 (8.4-10.2) mg/dL Total Bilirubin 1.2 (0.2-1.3) mg/dL AST 25 (14-36) IU/L ALT 26 (9-52) IU/L Alkaline Phosphatase 76 (38-126) U/L Troponin I < 0.012 (0.01-0.034) ng/mL B-Natriuretic Peptide 42.1 (<100) Total Protein 7.1 (6.3-8.2) g/dL Albumin 4.0 (3.5-5.0) g/dL Globulin 3.1 (1.7-4.1) g/dL Albumin/Globulin Ratio 1.3 (1.0-2.8) Procalcitonin (<0.5) ng/mL Monoscreen (Negative) 04/15/18 04/15/18 04/15/18 Range/Units 20:05 20:05 20:05 WBC (4.5-11.0) X10^3/uL RBC (4.0-5.2) X10^6/uL Hgb (12.0-16.0) g/dL Hct (36-46) % MCV (80-100) fL MCH (26-34) PG MCHC (30-36) % RDW (11.6-14.8) % Plt Count (150-400) X10^3/uL Neut % (Auto) (50-75) % Lymph % (Auto) (25-40) % Kleberg % (Auto) (3-14) % Eos % (Auto) (2-4) % Baso % (Auto) (0-2) % Neut # (Auto) (6145-8501) /uL Sodium (137-145) mmol/L Potassium (3.4-5.1) mmol/L Chloride (98-107) mmol/L Carbon Dioxide (22-32) mmol/L BUN (7-17) mg/dL Creatinine (0.52-1.04) mg/dL Estimated GFR (>60) mL/min BUN/Creatinine Ratio (6-22) Glucose (80-110) mg/dL Lactate 1.0 (0.7-2.1) mmol/L Calcium (8.4-10.2) mg/dL Total Bilirubin (0.2-1.3) mg/dL AST (14-36) IU/L ALT (9-52) IU/L Alkaline Phosphatase (38-126) U/L Troponin I (0.01-0.034) ng/mL B-Natriuretic Peptide (<100) Total Protein (6.3-8.2) g/dL Albumin (3.5-5.0) g/dL Globulin (1.7-4.1) g/dL Albumin/Globulin Ratio (1.0-2.8) Procalcitonin < 0.05 (<0.5) ng/mL Monoscreen Negative (Negative) Imaging Data Chest x-ray: Radiologist's impression: PROCEDURE: XR CHEST 2V INDICATIONS: history of bronchitis getting worse TECHNIQUE: 2 views of the chest were acquired. COMPARISON: [facility], CR, XR CHEST 2V, 04/02/2018, 18:21. FINDINGS: Surgical changes and devices: None. Lungs and pleura: No pleural effusions or pneumothorax. Lungs are clear. Mediastinum: Mediastinal contours are normal. Heart size is normal. Bones and chest wall: No suspicious bony abnormalities. Soft tissues appear unremarkable. IMPRESSION: Normal for age. Source of current symptoms is not seen. Dictated by: Cordell Jeffers M.D. on 04/15/2018 at 20:12 ECG Data Attestation: I personally reviewed and interpreted this ECG as follows: Prior ECG tracings: not available for review Interpretation: EKG dated 15 April 2018 time 1937 hr sinus rhythm ventricular rate is 66 normal axis normal intervals normal QRS No ST T wave changes MDM Narrative Medical decision making narrative: Chest x-ray does not show any signs of pneumonia. Does not have an elevated white blood cell count. Lactate and procalcitonin normal. Has a normal physical exam. Patient was given fluids here in the emergency department she states that she feels better. no indication for antibiotics. We did discuss the importance of a good balance diet increasing her fluids. She was given return precautions. She expressed understanding and agreement with plan Discharge Plan Departure Patient Disposition: Home, Self-Care Clinical Impression: Fatigue, Fever Discharge Date/Time: 04/15/18 22:48 Interventions: ED Discharge Assessment Last Done: 04/15/18 22:48 Instructions: DI for Fatigue Activity Restrictions/Additional Instructions: I would recommend that you contact your primary care doctor tomorrow for a follow-up. Make sure you are increasing her fluid intake and eating a balanced diet. Recommend that you continue all of your medications as instructed. Return to the emergency department for any new or worsening symptoms Prescriptions: No Action guaifenesin [Mucinex] 600 MG tablet extended release 12hr 600 mg PO Q12HP PRN (Reason: Cough) Qty: 0 RF: 0 levothyroxine 25 mcg tablet 25 mcg PO DAILY RF: 0 cefuroxime axetil 500 mg tablet 500 mg PO BID RF: 0 ondansetron HCl [Zofran] 4 mg tablet 4 mg PO Q6H PRN (Reason: nausea) Qty: 5 RF: 0
[2018-04-15 20:03] VITALS: BP 134/75; PULSE 62; RESP 13; O2SAT 98
[2018-04-15 20:26] LABS: Add Manual Diff / Slide Review NO; Basophils Percent Auto 0.8 % (0-2); Eosinophils Percent Auto 1.2 % (2-4); Hematocrit 41.7 % (36-46); Hemoglobin 14.3 g/dL (12.0-16.0); Lymphocytes Percent Auto 26.6 % (25-40); Mean Corpuscular HGB Conc 34.3 % (30-36); Mean Corpuscular Hemoglobin 30.5 PG (26-34); Monocytes Percent Auto 6.8 % (3-14); Neutrophils Absolute Auto 4400 /uL (3000-5900); Neutrophils Percent Auto 64.6 % (50-75); Platelet Count 283 X10^3/uL (150-400); Red Blood Cell Count 4.68 X10^6/uL (4.0-5.2); White Blood Cell Count 6.9 X10^3/uL (4.5-11.0)
[2018-04-15 20:31] LABS: Alanine Aminotransferase 26 IU/L (9-52); Albumin Globulin Ratio 1.3 (1.0-2.8); Alkaline Phosphatase 76 U/L (38-126); Aspartate Aminotransferase 25 IU/L (14-36); BUN Creatinine Ratio 24.3 (6-22); Bilirubin Total 1.2 mg/dL (0.2-1.3); Blood Urea Nitrogen 17 mg/dL (7-17); Calcium 9.6 mg/dL (8.4-10.2); Carbon Dioxide 26 mmol/L (22-32); Chloride 104 mmol/L (98-107); Estimated Glomerular Filt Rate > 60.0 mL/min (>60); Globulin 3.1 g/dL (1.7-4.1); Glucose 103 mg/dL (80-110); HEMOLYSIS < 15 (0-50); Sodium 141 mmol/L (137-145); Total Protein 7.1 g/dL (6.3-8.2)
[2018-04-15 20:43] LABS: Troponin I < 0.012 ng/mL (0.01-0.034)
[2018-04-15] MEDS: SODIUM CHLORIDE 0.9% 1,000 ML 1000 ML IV (20:45)
[2018-04-15] MEDS: ONDANSETRON 4 MG/2 ML INJ IV (20:45)
[2018-04-15 20:48] LABS: Procalcitonin < 0.05 ng/mL (<0.5)
[2018-04-15 21:00] VITALS: BP 114/92; PULSE 63; RESP 15; O2SAT 98
[2018-04-15 21:03] LABS: B Type Natriuretic Peptide 42.1 (<100)
[2018-04-15 22:09] VITALS: BP 114/95; PULSE 65; RESP 15; O2SAT 98
[2018-04-15 22:48] LABS: Monotest Negative (Negative)
== END 2018-04-15 22:48 | disposition home or self-care (01) ==
PROVIDERS: Emergency Provider Emergency Medicine; Family Provider Family Medicine; PCP Family Medicine
DX: R50.9 Fever, unspecified (principal); R53.83 Other fatigue
CPT/HCPCS: 36591; 71046; 80053; 83605; 83880; 84145; 84484; 85025; 86318; 87040; 93005; 96361; 96374; 99283; 99285; J2405

== ENCOUNTER → 2018-05-23 12:49 | Outpatient (CLI) | payer MEDICARE, MEDICAID, SELFPAY ==
--- NOTE | 2018-05-23 | DI.ECHO.S_ITS ---
[place] [facility]---------+ [facility] +---------+ : : [address] : : : : [id number] : : : : Phone: [phone] Echocardiogram Report + + :Name: ELYSIA LYNN Study Date: 05/23/2018 Height: 68 in : :[facility] Exam Location: IS Weight: 185 lb : : Gender: Female BSA: 2.0 m2 : :: 1945 Age: 72 yrs BP: 125/78 mmHg: :Reason For Study: PALPITATIONS : : Performed By: Shamir White : :Referring: JENNIFER PRESLEY : + + Interpretation Summary The left ventricle is normal in size. The ejection fraction is estimated to be 60-65%. The right ventricle is normal in size and function. No significant valvular pathology seen. Mild atherosclerotic plaque(s) in the aortic arch. Procedure: A two-dimensional transthoracic echocardiogram with color flow and Doppler was performed. The study quality was technically good. There is no prior echocardiogram noted for this patient. The patient was in normal sinus rhythm during the exam. The patient had occasional PACs during the exam. Left Ventricle: The left ventricle is normal in size. There is normal left ventricular wall thickness. There is no thrombus. The ejection fraction is estimated to be 60-65%. There are no focal wall motion abnormalities. MV E/A: 1.5 Med Peak E' Jarvis: 5.8 cm/sec E/E' med: 16.8. Right Ventricle: The right ventricle is normal in size and function. Atria: The left atrium is mildly dilated. Right atrial size is normal. The interatrial septum is intact with no evidence for an atrial septal defect. Mitral Valve: The mitral valve leaflets are slightly calcified. The mitral valve chordae are thickened and/or calcified. There is trace mitral regurgitation. Aortic Valve: The aortic valve is normal in structure and function. The aortic valve is trileaflet. The aortic valve opens well. There is no aortic valve stenosis. No aortic regurgitation is present. Tricuspid Valve: The tricuspid valve is normal in structure and function. There is trace tricuspid regurgitation. The right ventricular systolic pressure is estimated at 22 mmHg assuming a right atrial pressure of 3 mm Hg. Pulmonic Valve: The pulmonic valve is normal in structure and function. There is trace pulmonic regurgitation. Great Vessels: The aortic root is normal size. The dimensions of the ascending aorta are normal. Mild atherosclerotic plaque(s) in the aortic arch. The pulmonary artery is normal size. The IVC is of normal diameter and collapses greater than 50% with a sniff. This suggests a low right atrial pressure of 3 mm Hg. Pericardium/ Pleura There is no pericardial effusion. There is an anterior echo-free space consistent with a fat pad. There is no pleural effusion. MMode/2D Measurements & Calculations LVIDd: 5.2 cm Ao root diam: 3.0 cm LVIDs: 3.2 cm Aortic Jxn: 2.3 cm FS: 38.1 % asc Aorta Diam: 3.3 cm EPSS: 0.71 cm Ao Arch Diam (Prox Trans): 2.6 cm IVSd: 0.70 cm LVPWd: 0.87 cm LV walker. diameter/BSA (cm/m^2): 2.6 LV sys. diameter/BSA (cm/m^2): 1.6 LA dimension: 3.6 cm RA long axis: 5.2 cm LA A2 area: 23.1 cm2 RA area: 19.1 cm2 LA A4 area: 21.1 cm2 RA vol: 59.5 ml LA length (vol): 5.7 cm RA : 30.1 ml/m2 LA vol: 73.1 ml IVC diam: 2.0 cm LA vol index: 37.0 ml/m2 Doppler Measurements & Calculations Ao V2 max: 143.8 cm/sec MV E max jarvis: 97.0 cm/sec Ao V2 mean: 103.3 cm/sec MV A max jarvis: 64.4 cm/sec Ao max P.3 mmHg MV E/A: 1.5 Ao mean P.6 mmHg Med Peak E' Jarvis: 5.8 cm/sec Ao V2 VTI: 32.1 cm E/E' med: 16.8 Lat Peak E' Jarvis: 6.8 cm/sec E/E' lat: 14.2 E/e' average: 15.5 MV dec time: 0.18 sec TR max jarvis: 218.9 cm/sec Pulm A Revs Jarvis: 40.7 cm/sec TR max P.2 mmHg PA V2 max: 101.1 cm/sec PA V2 mean: 77.2 cm/sec PA mean P.5 mmHg PA pr(Accel): 34.1 mmHg PA Accel Time: 0.11 sec Reading Physician:PM
== END ==
PROVIDERS: PCP Family Medicine; Visit Provider Internal Medicine Cardiovascular Disease
DX: R00.2 Palpitations (principal); I70.0 Atherosclerosis of aorta
CPT/HCPCS: 93306

== ENCOUNTER → 2018-06-09 12:45 | Outpatient (CLI) | payer MEDICARE, MEDICAID, SELFPAY ==
--- NOTE | 2018-06-09 | DI.MRI.S_ITS ---
PROCEDURE: MR HEAD/BRAIN WO/W CON INDICATIONS: MENINGIOMA TECHNIQUE: Noncontrast axial T1 spin echo, axial T2 fast spin echo, sagittal and axial FLAIR, coronal T2 fast spin echo, axial gradient echo, axial diffusion and ADC through the brain. After the administration of contrast, axial and coronal T1 spin echo with fat saturation through the brain. COMPARISON: [facility], CT, SINUS SCREEN WO CONTRAST, 11/12/2017, 14:22. [facility], CT, CT HEAD/BRAIN WO CON, 04/02/2018, 18:38. FINDINGS: Image quality: Excellent. CSF spaces: Basal cisterns are patent. No extra-axial fluid collections. Ventricles are symmetrical in size and shape. The 8 x 10 x 11 mm extra-axial mass seen over the left frontal convexity on prior CT shows mild postcontrast enhancement. Brain: No midline shift. No intracranial bleeds or masses. No abnormal intracranial enhancement. There is mild cerebral volume loss for age. There is mild periventricular white matter chronic small vessel ischemic change. The brainstem appears normal. Diffusion-weighted images demonstrate no acute ischemic insults. There is a 5 x 10 mm chronic ischemic insult in the posterior aspect of the right cerebellar hemisphere. Normal intravascular flow voids are present. Skull and face: Calvarial marrow is normal in signal. Orbits appear normal. Sinuses: Sinuses show bilateral maxillary retention cyst/polyps. The mastoids appear clear. IMPRESSION: 1. 1 cm meningioma over the left frontal lobe is reidentified. Appropriate MRI followup is suggested. 2. Mild age related atrophy and chronic deep white matter ischemic changes. 3. Chronic lacunar infarct right cerebellum. 4. 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 Dictated by: Shawn Quick M.D. on 06/09/2018 at 13:49 Approved by: Shawn Quick M.D. on 06/09/2018 at 14:15
== END ==
PROVIDERS: PCP Family Medicine
DX: D32.9 Benign neoplasm of meninges, unspecified (principal); J32.0 Chronic maxillary sinusitis
CPT/HCPCS: 70553; A9579

== ENCOUNTER 2018-07-18 20:26 | Emergency (ER) | payer MEDICARE, MEDICAID, SELFPAY ==
[2018-07-18 20:35] VITALS: BP 131/74; PULSE 75; RESP 18; TEMP 36.2; O2SAT 98; BMI 28.8
--- NOTE | 2018-07-18 20:42 | DI.RAD.S_ITS ---
PROCEDURE: XR HAND RT MIN 3V INDICATIONS: pain post fall to 2nd,3rd, 4th finger pain. post fall onto outstretched hand while walking up TECHNIQUE: 3 views of the hand(s) acquired. COMPARISON: None. FINDINGS: Bones: No fractures or dislocations. Carpal bones are normally aligned. No suspicious bony lesions. 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 Soft tissues: No suspicious soft tissue calcifications. IMPRESSION: Degenerative change. No acute radiographic findings. If pain persists, repeat study in 5-7 days is recommended to exclude occult fracture. Dictated by: Aviva Delvalle M.D. on 07/18/2018 at 21:07 Approved by: Aviva Delvalle M.D. on 07/18/2018 at 21:08
--- NOTE | 2018-07-18 20:50 | ED.UPPEXIN ---
HPI - Extremity Injury (Upper) <ODILON Espinoza - Last Filed: 07/18/18 22:28> General Chief Complaint: Extremity Injury, Upper Stated Complaint: FALL RIGHT HAND MIDDLE FINGER INJURY Time Seen by Provider: 07/18/18 20:31 Source: patient Mode of arrival: ambulatory Limitations: no limitations History of Present Illness HPI narrative: 73-year-old female with history hypothyroidism and a former smoker here for complaint of pain into her right middle and ring finger. She states that she had a ground level fall earlier today when she was carrying groceries in her house and stumbled over small step. She states she put out her right hand to brace her fall and cause pain into her right middle finger. She reports slight swelling to the area. Increased pain with motion of the right middle finger. She denies hitting her head. No loss of consciousness. She denies pain to any other area. No other concerns or complaints at this time. complaint: injury to: right and finger Related Data Home Medications Medication Instructions Recorded Confirmed guaifenesin [Mucinex] 600 mg PO Q12HP PRN #0 ter 07/31/16 04/02/18 cefuroxime axetil 500 mg PO BID 04/02/18 04/02/18 levothyroxine 25 mcg PO DAILY 04/02/18 04/02/18 Previous Rx's Medication Instructions Recorded ondansetron HCl [Zofran] 4 mg PO Q6H PRN #5 tab 04/02/18 Review of Systems <ODILON Espinoza - Last Filed: 07/18/18 22:28> Constitutional Denies chills, Denies fever(s), Denies lethargy and Denies weakness Eyes Denies change in vision, Denies eye discharge, Denies irritation and Denies loss of vision ENT Ears, Nose, Mouth, and Throat: Denies change in voice, Denies neck pain and Denies sore throat Cardiovascular Denies chest pain, Denies irregular heart rhythm, Denies lightheadedness, Denies palpitations, Denies dyspnea, Denies dyspnea on exertion and Denies orthopnea Respiratory Denies cough, Denies dyspnea, Denies dyspnea on exertion and Denies wheezing Gastrointestinal Gastrointestinal: Denies abdominal pain, Denies change in bowel habits, Denies diarrhea, Denies nausea and Denies vomiting Genitourinary Denies hematuria, Denies flank pain, Denies urinary incontinence and Denies urinary urgency Musculoskeletal Denies neck pain Comments: Pain to right middle and ring finger Neurologic Denies loss of vision and Denies weakness Endocrine Denies palpitations Allergic/Immunologic Denies wheezing Exam <ODILON Espinoza - Last Filed: 07/18/18 22:28> Initial Vital Signs Initial Vital Signs: Vital Signs Temperature 97.1 F L 07/18/18 20:35 Pulse Rate 75 07/18/18 20:35 Respiratory Rate 18 07/18/18 20:35 Blood Pressure 131/74 07/18/18 20:35 Pulse Oximetry 98 07/18/18 20:35 Const General: cooperative and well developed Nutritional Appearance: well nourished Orientation: alert, awake, oriented x3 and not confused [facility] Mouth: oral mucosae normal and moist mucous membranes Eyes Conjunctivae: conjunctivae normal Sclera: sclerae normal Pupils: PERRL EOM: EOM intact bilaterally Cardio Rate: regular rate Rhythm: regular rhythm Heart Sounds: no click, no gallops, no murmurs and no rubs Skin General: no rashes or lesions noted, No jaundice and No petechiae Neuro General: alert, oriented x3, gait normal and no focal motor deficits Speech: speech normal Extrem Other: Slight swelling and ecchymosis to the right ring and middle finger. Distal sensation is intact. Distal cap refill less than 2 sec. Full range of motion of fingers. No deformities. No open lesions <DO Elan Mills Last Filed: 07/18/18 23:16> Initial Vital Signs Initial Vital Signs: Vital Signs Temperature 97.1 F L 07/18/18 20:35 Pulse Rate 75 07/18/18 20:35 Respiratory Rate 18 07/18/18 20:35 Blood Pressure 131/74 07/18/18 20:35 Pulse Oximetry 98 07/18/18 20:35 Course <ODILON Espinoza - Last Filed: 07/18/18 22:28> Orders Ordered: ED Orders 07/18/18 20:42 XR hand RT min 3V Stat Vital Signs - 8 hr 07/18/18 20:35 Temperature 97.1 F L Pulse Rate 75 Respiratory Rate 18 Blood Pressure 131/74 Pulse Oximetry 98 <DO Elan Mills Last Filed: 07/18/18 23:16> Orders Ordered: ED Orders 07/18/18 20:42 XR hand RT min 3V Stat Vital Signs - 8 hr 07/18/18 20:35 Temperature 97.1 F L Pulse Rate 75 Respiratory Rate 18 Blood Pressure 131/74 Pulse Oximetry 98 MDM - Extremity Injury (Upper) <ODILON Espinoza - Last Filed: 07/18/18 22:28> Imaging Data Right hand: Radiologist's impression: [address] [address] XRay Report Signed Patient: Sonali Stearns MR#: [id number] : 1945 Acct:[id number] Age/Sex: 73 / F Date of Service: 07/18/18 Loc: ED Accession Number: [id number] Procedure: XR hand RT min 3V Ordering Provider: Amarjit Cuellar D.O. PROCEDURE: XR HAND RT MIN 3V INDICATIONS: pain post fall to 2nd,3rd, 4th finger pain. post fall onto outstretched hand while walking up TECHNIQUE: 3 views of the hand(s) acquired. COMPARISON: None. FINDINGS: Bones: No fractures or dislocations. Carpal bones are normally aligned. No suspicious bony lesions. 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 Soft tissues: No suspicious soft tissue calcifications. IMPRESSION: Degenerative change. No acute radiographic findings. If pain persists, repeat study in 5-7 days is recommended to exclude occult fracture. Dictated by: Aviva Delvalle M.D. on 07/18/2018 at 21:07 Approved by: Aviva Delvalle M.D. on 07/18/2018 at 21:08 [facility] Narrative Medical decision making narrative: X-ray the right hand was obtained was negative for any acute fractures. Signs and symptoms presents as contusion to the right hand fingers. [id number] Tylenol or Motrin as needed for any discomfort. Follow up with primary care provider next week for re-evaluation. Repeat films next week if still painful. For any worsening symptoms return to the emergency room. Discharge Plan Departure Patient Disposition: Home Clinical Impression: Contusion of finger of right hand Discharge Date/Time: 07/18/18 21:44 Interventions: ED Discharge Assessment Last Done: 07/18/18 21:44 Instructions: DI for Contusion Activity Restrictions/Additional Instructions: X-ray the right hand was obtained was negative for any acute fractures. Signs and symptoms presents as contusion to the right hand fingers. [id number] Tylenol or Motrin as needed for any discomfort. Follow up with primary care provider next week for re-evaluation. Repeat films next week if still painful. For any worsening symptoms return to the emergency room. Prescriptions: No Action guaifenesin [Mucinex] 600 MG tablet extended release 12hr 600 mg PO Q12HP PRN (Reason: Cough) Qty: 0 RF: 0 levothyroxine 25 mcg tablet 25 mcg PO DAILY RF: 0 cefuroxime axetil 500 mg tablet 500 mg PO BID RF: 0 ondansetron HCl [Zofran] 4 mg tablet 4 mg PO Q6H PRN (Reason: nausea) Qty: 5 RF: 0 Referrals: Blas Dorsey MD [Primary Care Provider] - <Amarjit Cuellar DO - Last Filed: 07/18/18 23:16> Cosign ED Attending Sweetieature Attestation: I was available for consultation during this patient's emergency department encounter
--- NOTE | 2018-07-18 21:23 | ED_ITS ---
HPI - Extremity Injury (Upper) <ODILON Espinoza - Last Filed: 07/18/18 22:28> General Chief Complaint: Extremity Injury, Upper Stated Complaint: FALL RIGHT HAND MIDDLE FINGER INJURY Time Seen by Provider: 07/18/18 20:31 Source: patient Mode of arrival: ambulatory Limitations: no limitations History of Present Illness HPI narrative: 73-year-old female with history hypothyroidism and a former smoker here for complaint of pain into her right middle and ring finger. She states that she had a ground level fall earlier today when she was carrying groceries in her house and stumbled over small step. She states she put out her right hand to brace her fall and cause pain into her right middle finger. She reports slight swelling to the area. Increased pain with motion of the right middle finger. She denies hitting her head. No loss of consciousness. She denies pain to any other area. No other concerns or complaints at this time. complaint: injury to: right and finger Related Data Home Medications Medication Instructions Recorded Confirmed guaifenesin [Mucinex] 600 mg PO Q12HP PRN #0 ter 07/31/16 04/02/18 cefuroxime axetil 500 mg PO BID 04/02/18 04/02/18 levothyroxine 25 mcg PO DAILY 04/02/18 04/02/18 Previous Rx's Medication Instructions Recorded ondansetron HCl [Zofran] 4 mg PO Q6H PRN #5 tab 04/02/18 Review of Systems <ODILON Espinoza - Last Filed: 07/18/18 22:28> Constitutional Denies chills, Denies fever(s), Denies lethargy and Denies weakness Eyes Denies change in vision, Denies eye discharge, Denies irritation and Denies loss of vision ENT Ears, Nose, Mouth, and Throat: Denies change in voice, Denies neck pain and Denies sore throat Cardiovascular Denies chest pain, Denies irregular heart rhythm, Denies lightheadedness, Denies palpitations, Denies dyspnea, Denies dyspnea on exertion and Denies orthopnea Respiratory Denies cough, Denies dyspnea, Denies dyspnea on exertion and Denies wheezing Gastrointestinal Gastrointestinal: Denies abdominal pain, Denies change in bowel habits, Denies diarrhea, Denies nausea and Denies vomiting Genitourinary Denies hematuria, Denies flank pain, Denies urinary incontinence and Denies urinary urgency Musculoskeletal Denies neck pain Comments: Pain to right middle and ring finger Neurologic Denies loss of vision and Denies weakness Endocrine Denies palpitations Allergic/Immunologic Denies wheezing Exam <ODILON Espinoza - Last Filed: 07/18/18 22:28> Initial Vital Signs Initial Vital Signs: Vital Signs Temperature 97.1 F L 07/18/18 20:35 Pulse Rate 75 07/18/18 20:35 Respiratory Rate 18 07/18/18 20:35 Blood Pressure 131/74 07/18/18 20:35 Pulse Oximetry 98 07/18/18 20:35 Const General: cooperative and well developed Nutritional Appearance: well nourished Orientation: alert, awake, oriented x3 and not confused [facility] Mouth: oral mucosae normal and moist mucous membranes Eyes Conjunctivae: conjunctivae normal Sclera: sclerae normal Pupils: PERRL EOM: EOM intact bilaterally Cardio Rate: regular rate Rhythm: regular rhythm Heart Sounds: no click, no gallops, no murmurs and no rubs Skin General: no rashes or lesions noted, No jaundice and No petechiae Neuro General: alert, oriented x3, gait normal and no focal motor deficits Speech: speech normal Extrem Other: Slight swelling and ecchymosis to the right ring and middle finger. Distal sensation is intact. Distal cap refill less than 2 sec. Full range of motion of fingers. No deformities. No open lesions <DO Elan Mills Last Filed: 07/18/18 23:16> Initial Vital Signs Initial Vital Signs: Vital Signs Temperature 97.1 F L 07/18/18 20:35 Pulse Rate 75 07/18/18 20:35 Respiratory Rate 18 07/18/18 20:35 Blood Pressure 131/74 07/18/18 20:35 Pulse Oximetry 98 07/18/18 20:35 Course <ODILON Espinoza - Last Filed: 07/18/18 22:28> Orders Ordered: ED Orders 07/18/18 20:42 XR hand RT min 3V Stat Vital Signs - 8 hr 07/18/18 20:35 Temperature 97.1 F L Pulse Rate 75 Respiratory Rate 18 Blood Pressure 131/74 Pulse Oximetry 98 <DO Elan Mills Last Filed: 07/18/18 23:16> Orders Ordered: ED Orders 07/18/18 20:42 XR hand RT min 3V Stat Vital Signs - 8 hr 07/18/18 20:35 Temperature 97.1 F L Pulse Rate 75 Respiratory Rate 18 Blood Pressure 131/74 Pulse Oximetry 98 MDM - Extremity Injury (Upper) <ODILON Espinoza - Last Filed: 07/18/18 22:28> Imaging Data Right hand: Radiologist's impression: [address] [address] XRay Report Signed Patient: Sonali Stearns MR#: [id number] : 1945 Acct:[id number] Age/Sex: 73 / F Date of Service: 07/18/18 Loc: ED Accession Number: [id number] Procedure: XR hand RT min 3V Ordering Provider: Amarjit Cuellar D.O. PROCEDURE: XR HAND RT MIN 3V INDICATIONS: pain post fall to 2nd,3rd, 4th finger pain. post fall onto outstretched hand while walking up TECHNIQUE: 3 views of the hand(s) acquired. COMPARISON: None. FINDINGS: Bones: No fractures or dislocations. Carpal bones are normally aligned. No suspicious bony lesions. 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 Soft tissues: No suspicious soft tissue calcifications. IMPRESSION: Degenerative change. No acute radiographic findings. If pain persists, repeat study in 5-7 days is recommended to exclude occult fracture. Dictated by: Aviva Delvalle M.D. on 07/18/2018 at 21:07 Approved by: Aviva Delvalle M.D. on 07/18/2018 at 21:08 [facility] Narrative Medical decision making narrative: X-ray the right hand was obtained was negative for any acute fractures. Signs and symptoms presents as contusion to the right hand fingers. [id number] Tylenol or Motrin as needed for any discomfort. Follow up with primary care provider next week for re-evaluation. Repeat films next week if still painful. For any worsening symptoms return to the emergency room. Discharge Plan Departure Patient Disposition: Home Clinical Impression: Contusion of finger of right hand Discharge Date/Time: 07/18/18 21:44 Interventions: ED Discharge Assessment Last Done: 07/18/18 21:44 Instructions: DI for Contusion Activity Restrictions/Additional Instructions: X-ray the right hand was obtained was negative for any acute fractures. Signs and symptoms presents as contusion to the right hand fingers. [id number] Tylenol or Motrin as needed for any discomfort. Follow up with primary care provider next week for re-evaluation. Repeat films next week if still painful. For any worsening symptoms return to the emergency room. Prescriptions: No Action guaifenesin [Mucinex] 600 MG tablet extended release 12hr 600 mg PO Q12HP PRN (Reason: Cough) Qty: 0 RF: 0 levothyroxine 25 mcg tablet 25 mcg PO DAILY RF: 0 cefuroxime axetil 500 mg tablet 500 mg PO BID RF: 0 ondansetron HCl [Zofran] 4 mg tablet 4 mg PO Q6H PRN (Reason: nausea) Qty: 5 RF: 0 Referrals: Blas Dorsey MD [Primary Care Provider] - <Amarjit Cuellar DO - Last Filed: 07/18/18 23:16> Cosign ED Attending Sweetieature Attestation: I was available for consultation during this patient's emergency department encounter
== END 2018-07-18 21:44 | disposition home or self-care (01) ==
PROVIDERS: Emergency Provider Nurse Practitioner Family; PCP Family Medicine
DX: S60.031A Contusion of right middle finger without damage to nail, initial encounter (principal); W01.0XXA Fall on same level from slipping, tripping and stumbling without subsequent striking against object, initial encounter; S60.041A Contusion of right ring finger without damage to nail, initial encounter
CPT/HCPCS: 73130; 99282; 99283

== ENCOUNTER → 2018-10-21 15:23 | Outpatient (CLI) | payer MEDICARE, MEDICAID, SELFPAY ==
[2018-10-21 16:20] LABS: Estimated Glomerular Filt Rate > 60.0 mL/min (>60)
== END ==
PROVIDERS: PCP Family Medicine; Visit Provider Internal Medicine Gastroenterology
DX: Z01.812 Encounter for preprocedural laboratory examination (principal)
CPT/HCPCS: 36415; 82565

== ENCOUNTER → 2018-10-30 13:07 | Outpatient (CLI) | payer MEDICARE, MEDICAID, SELFPAY ==
--- NOTE | 2018-10-30 | DI.MRI.S_ITS ---
PROCEDURE: MR HEAD/BRAIN WO/W CON INDICATIONS: Benign neoplasm of meninges, unspecified TECHNIQUE: Noncontrast axial T1 spin echo, axial T2 fast spin echo, sagittal and axial FLAIR, coronal T2 fast spin echo, axial gradient echo, axial diffusion and ADC through the brain. After the administration of contrast, axial and coronal T1 spin echo with fat saturation through the brain. COMPARISON: [facility], , MR HEAD/BRAIN WO/W CON, 06/09/2018, 13:04. FINDINGS: Image quality: Excellent. CSF spaces: Basal cisterns are patent. No extra-axial fluid collections. Ventricles are normal in size and shape. Brain: No midline shift. No intracranial bleeds The 8 millimeter diameter peripherally hypoenhancing focus overlying the left superior frontal lobe is not changed in size. There is small chronic infarct within the right cerebellum is unchanged. There is cerebral volume loss for age. There is periventricular white matter chronic small vessel ischemic change. The brainstem appears normal. Diffusion-weighted images demonstrate no acute ischemic insults. No chronic ischemic insults. Normal intravascular flow voids are present. Skull and face: Calvarial marrow is normal in signal. Orbits appear normal. Sinuses: Small retention cyst within the right maxillary sinus. Sinuses and mastoids otherwise appear clear. IMPRESSION: 1. No acute process. 2. No change in small left frontal meningioma. 3. Mild volume loss and small vessel ischemic disease. 4. 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 Dictated by: Malcolm Yee M.D. on 10/30/2018 at 14:03 Approved by: Malcolm Yee M.D. on 10/30/2018 at 14:12
== END ==
PROVIDERS: PCP Family Medicine; Visit Provider Physician Assistant
DX: D32.9 Benign neoplasm of meninges, unspecified (principal)
CPT/HCPCS: 70553; A9579

== ENCOUNTER → 2019-01-09 13:22 | Outpatient (CLI) | payer MEDICARE, MEDICAID, SELFPAY ==
--- NOTE | 2019-01-09 | DI.US.S_ITS ---
PROCEDURE: US PELVIC COMPLETE INDICATIONS: DYSFUNCTIONAL UTERINE BLEEDING TECHNIQUE: Real-time scanning was performed of the pelvic organs, with image documentation. Additional endovaginal scanning was necessary due to incomplete visualization of the adnexal and endometrial structures by transabdominal scanning. COMPARISON: None. FINDINGS: Transabdominal scanning: Limited scanning through the kidneys shows no hydronephrosis. No pathologic free abdominal or pelvic fluid. Endovaginal scanning: Uterus: Uterus is normal in size at 3.0 x 3.5 x 5.8 cm. The endometrium measures 3.0 mm in combined thickness. The endometrial lining thickness is within normal limits but the endometrial lining itself is mildly heterogeneous. Endometrial calcifications may be present. Ovaries: Not seen bilaterally. IMPRESSION: Endometrial lining heterogeneity is present likely with mild dystrophic calcifications. A discrete mass is not seen in the endometrial lining measures only 3 mm in combined thickness. However, given the heterogeneity present and history of vaginal bleeding followup biopsy may be warranted. Dictated by: Cordell Jeffers M.D. on 01/09/2019 at 14:08 Approved by: Cordell Jeffers M.D. on 01/09/2019 at 14:10
== END ==
PROVIDERS: PCP Family Medicine; Visit Provider Nurse Practitioner Family
DX: N93.8 Other specified abnormal uterine and vaginal bleeding (principal)
CPT/HCPCS: 76830; 76856

== ENCOUNTER → 2019-05-13 14:51 | Outpatient (CLI) | payer MEDICARE, MEDICAID, SELFPAY ==
--- NOTE | 2019-05-13 | DI.RAD.S_ITS ---
PROCEDURE: XR CHEST 2V INDICATIONS: COUGH TECHNIQUE: 2 views of the chest were acquired. COMPARISON: [facility], CR, XR CHEST 2V, 04/15/2018, 19:20. [facility], CR, XR CHEST 2V, 04/02/2018, 18:21. FINDINGS: Surgical changes and devices: None. Lungs and pleura: Lungs are clear. No pleural effusions or pneumothorax. Mediastinum: Mediastinal contours are normal. Heart size is normal. Bones and chest wall: No suspicious bony abnormalities. Soft tissues appear unremarkable. IMPRESSION: Normal for age, source of current cross symptoms is not seen. Dictated by: Cordell Jeffers M.D. on 05/13/2019 at 15:56 Approved by: Cordell Jeffers M.D. on 05/13/2019 at 15:57
== END ==
PROVIDERS: PCP Student in an Organized Health Care Education/Training Program; Visit Provider Student in an Organized Health Care Education/Training Program
DX: R05 Cough (principal)
CPT/HCPCS: 71046

== ENCOUNTER → 2019-07-22 14:41 | Outpatient (CLI) | payer MEDICARE, MEDICAID, SELFPAY ==
--- NOTE | 2019-07-22 | DI.MRI.S_ITS ---
PROCEDURE: MR LUMBAR SPINE WO CON INDICATIONS: Low back and right leg pain TECHNIQUE: Noncontrast sagittal T1 spin echo and T2 fast echo, sagittal STIR, axial T1 and T2 fast spin echo through the lumbar spine. In cases with scoliosis, additional coronal T2 fast spin echo may be performed. COMPARISON: [facility], CR, L-SPINE 2-3 VIEWS, 07/28/2009, 18:29. [facility], MR, L-SPINE WITHOUT CONTRAST, 11/12/2016, 18:49. [facility], MR, L-SPINE WITHOUT CONTRAST, 08/09/2009, 11:49. FINDINGS: Image quality: Excellent. Alignment and Curvature: Mild levoconvex scoliotic curvature is noted. Bone Marrow: Marrow is of normal overall signal. No acute vertebral body compression fractures. Spinal Cord: Conus medullaris terminates at the L1 level. Visualized cord demonstrates normal signal and size. Paraspinous Soft Tissues: No paravertebral masses. Simple appearing bilateral renal cysts are seen. T12-L1: Bridging endplate osteophytes are seen. No significant neural foraminal or central canal narrowing can be seen. L1-L2: The disc height is well-preserved. Loss of disc signal is seen at this level. Mild generalized disc bulge is seen. There is a mild central disc protrusion seen. No neural foraminal narrowing is seen. Minimal central canal narrowing is seen. When comparison is made with the prior examination, these findings are similar. L2-L3: The disc height is well-preserved. Loss of disc signal is seen at this level. Bridging endplate osteophytes are seen. Mild generalized disc bulge is seen. Mild facet joint hypertrophy is seen. No significant neural foraminal or central canal narrowing can be seen. When comparison is made with the prior examination, these findings are similar. L3-L4: The disc height is well-preserved. Loss of disc signal is seen at this level. Moderate disc bulge is seen, which is eccentric to the left. Moderate facet joint hypertrophy is seen. There is moderate right-sided and mild to moderate left-sided neural foraminal narrowing seen. Moderate central canal narrowing is seen. No significant change from the prior. L4-L5: The disc height is well-preserved. Loss of disc signal is seen at this level. Moderate generalized disc bulge is seen. Moderate facet hypertrophy is seen, right worse than left. [id number] bilateral neural foraminal narrowing is seen. Mild central canal narrowing is seen. Stable from the prior study. L5-S1: Moderate loss of disc height is seen. Loss of disc signal is seen. Reactive marrow endplate changes are seen, which are hyperintense on T1-weighted and T2-weighted imaging and most consistent with fatty metaplasia (Modic type II changes). Mild to moderate disc bulge is seen, which is eccentric to the left. Prior postoperative changes are seen, with left hemilaminectomy. Moderate facet hypertrophy is seen. There is moderate to severe left-sided neural foraminal narrowing, with associated nerve root impingement upon the exiting left L5 nerve root. No significant right-sided neural foraminal narrowing is seen. The central canal is widely patent. Stable from the prior study. IMPRESSION: At L5-S1, there is again seen and moderate to severe left-sided neural foraminal narrowing, with associated nerve root impingement. Milder levels of degenerative change are seen elsewhere, which are also similar to 2017. Dictated by: Sukumar Washburn M.D. on 07/22/2019 at 16:09 Approved by: Sukumar Washburn M.D. on 07/22/2019 at 16:16
== END ==
PROVIDERS: PCP Internal Medicine; Visit Provider Internal Medicine
DX: M54.5 Low back pain (principal); M79.604 Pain in right leg; M48.07 Spinal stenosis, lumbosacral region; M48.061 Spinal stenosis, lumbar region without neurogenic claudication; M47.817 Spondylosis without myelopathy or radiculopathy, lumbosacral region; M47.816 Spondylosis without myelopathy or radiculopathy, lumbar region
CPT/HCPCS: 72148

== ENCOUNTER → 2019-11-12 14:05 | Outpatient (CLI) | payer MEDICARE, MEDICAID, SELFPAY ==
--- NOTE | 2019-11-12 14:23 | DI.MRI.S_ITS ---
PROCEDURE: MR HEAD/BRAIN WO/W CON INDICATIONS: Benign neoplasm of cerebral meninges TECHNIQUE: Noncontrast axial T1 spin echo, axial T2 fast spin echo, sagittal and axial FLAIR, coronal T2 fast spin echo, axial gradient echo, axial diffusion and ADC through the brain. After the administration of contrast, axial and coronal T1 spin echo with fat saturation through the brain. COMPARISON: [facility], MR, MR HEAD/BRAIN WO/W CON, 10/30/2018, 13:18. FINDINGS: Image quality: Excellent. CSF spaces: Basal cisterns are patent. No extra-axial fluid collections. Ventricles are normal in size and shape. Brain: No midline shift. No intracranial. The peripherally enhancing hypointense extra-axial focus overlying the left posterior superior frontal lobe measuring 8 mm is not significantly changed. There is a small chronic right cerebellar infarct, as before. There is cerebral volume loss for age. There is periventricular white matter chronic small vessel ischemic change. The brainstem appears normal. Diffusion-weighted images demonstrate no acute ischemic insults. No chronic ischemic insults. Normal intravascular flow voids are present. Skull and face: Calvarial marrow is normal in signal. Orbits appear normal. Sinuses: There is a small right maxillary sinus retention cyst, as before. Sinuses and mastoids otherwise appear clear. IMPRESSION: 1. No change in left frontal meningioma. 2. Volume loss and small vessel ischemic disease. 3. Small right cerebellar infarct, as before. 4. No acute process. No recent infarct. Dictated by: Malcolm Yee M.D. on 11/13/2019 at 8:27 Approved by: Malcolm Yee M.D. on 11/13/2019 at 8:30
== END ==
PROVIDERS: PCP Internal Medicine; Visit Provider Physician Assistant
DX: D32.0 Benign neoplasm of cerebral meninges (principal); J34.1 Cyst and mucocele of nose and nasal sinus
CPT/HCPCS: 70553; A9579

== ENCOUNTER → 2020-01-13 18:52 | Outpatient (ROUT) | payer MEDICARE, MEDICAID, SELFPAY ==
[2020-01-13 19:29] LABS: Aspartate Aminotransferase 32 IU/L (14-36); BUN Creatinine Ratio 16.7 (6-22); Blood Urea Nitrogen 14 mg/dL (7-17); Calcium 10.3 mg/dL (8.4-10.2); Carbon Dioxide 28 mmol/L (22-32); Chloride 102 mmol/L (98-107); Cholesterol 239 mg/dL (140-199); Estimated Glomerular Filt Rate > 60.0 mL/min (>60); Glucose 95 mg/dL (80-110); HDL Cholesterol 89 mg/dL (40-60); HEMOLYSIS < 15 (0-50); LDL Cholesterol Calculated 132 mg/dL (<100); Magnesium 2.1 mg/dL (1.6-2.3); Potassium 4.3 mmol/L (3.4-5.1); Sodium 138 mmol/L (137-145); Triglycerides 91 mg/dL (35-150)
[2020-01-13 19:49] LABS: Add Manual Diff / Slide Review NO; Basophils Absolute Auto 0 /uL (0-100); Basophils Percent Auto 0.9 % (0-2); Eosinophils Absolute Auto 100 /uL (0-450); Eosinophils Percent Auto 2.7 % (2-4); Hematocrit 44.9 % (36-46); Hemoglobin 15.2 g/dL (12.0-16.0); Lymphocytes Absolute Auto 1400 /uL (1100-4500); Lymphocytes Percent Auto 29.5 % (25-40); Mean Corpuscular HGB Conc 33.9 % (30-36); Mean Corpuscular Hemoglobin 30.8 PG (26-34); Mean Corpuscular Volume 90.9 fL (80-100); Monocytes Absolute Auto 400 /uL (0-900); Monocytes Percent Auto 8.1 % (3-14); Neutrophils Absolute Auto 2800 /uL (1500-7000); Neutrophils Percent Auto 58.8 % (50-75); Platelet Count 263 X10^3/uL (150-400); Red Blood Cell Count 4.94 X10^6/uL (4.0-5.2); Red Cell Distribution Width 13.6 % (11.6-14.8); White Blood Cell Count 4.8 X10^3/uL (4.5-11.0)
[2020-01-13 20:01] LABS: TSH w/ Reflex to FT4 2.84 uIU/mL (0.47-4.68)
== END ==
PROVIDERS: PCP Internal Medicine; Visit Provider Internal Medicine
DX: E03.9 Hypothyroidism, unspecified (principal); E78.89 Other lipoprotein metabolism disorders; R25.2 Cramp and spasm; E61.2 Magnesium deficiency
CPT/HCPCS: 80048; 80061; 83735; 84443; 84450; 85025

== ENCOUNTER 2020-09-28 21:34 | Emergency (ER) | payer MEDICARE, MEDICAID, SELFPAY ==
[2020-09-28 21:40] VITALS: BP 142/81; PULSE 82; RESP 20; TEMP 36.6; O2SAT 98
--- NOTE | 2020-09-28 21:57 | ED.SKABFB ---
HPI - Skin/Abscess/Foreign Bdy General Chief complaint: Skin/Abscess/Foreign Body Stated complaint: left side facial swelling Time Seen by Provider: 09/28/20 21:41 Source: patient Mode of arrival: Ambulatory Limitations: no limitations History of Present Illness HPI narrative: 75-year-old lady with a history of left frontal meningioma with mild seizures and hypothyroidism presents with swelling to her parotid gland left side. She 1st noticed some tingling to the left side of her face and after going home preparing some lemon tea she noticed that it was more tender and when she looked in the mirror was concerned with swelling. She has had a blocked parotid duct on the right side previously. She describes no fevers, chills, cough, sore throat, abdominal pain, vomiting, diarrhea. She has not noticed any changes to the quality or quantity of the small seizures she has 2nd to her meningioma. Related Data Home Medications Medication Instructions Recorded Confirmed guaifenesin [Mucinex] 600 mg PO Q12HP PRN #0 ter 07/31/16 08/11/19 levothyroxine 25 mcg PO DAILY 04/02/18 08/11/19 hydrocodone-acetaminophen PO 06/10/19 08/11/19 hydrocortisone acetate 1 % topical 1 applictn TOP BID PRN 08/11/19 08/11/19 cream lidocaine 5 % topical patch 1 patch TOP DAILY PRN 08/11/19 08/11/19 Previous Rx's Medication Instructions Recorded estradiol See Rx Instructions .ROUTE 04/25/20 .COMPLEX #42.5 gram Allergies Allergy/AdvReac Type Severity Reaction Status Date / Time No Known Drug Allergies Allergy Unverified 08/11/19 16:02 Review of Systems Review of Systems Narrative: Remainder of review of systems including constitutional, ENT, cardiovascular, respiratory, GI, , musculoskeletal, skin, neurologic and psychiatric systems reviewed and are unremarkable except as noted in HPI. Patient History Medical History Hypothyroid Social History Smoking Status: Former smoker Smoking Status: Former smoker alcohol intake frequency: a few times a month Substance Use Type: does not use Exam Narrative Exam Narrative: General: Alert appropriate in no acute distress HEENT: Left parotid gland is swollen, soft, non erythematous. With internal palpation no obvious stone or mass is palpated at the parotid duct Respiratory: Able to speak in full sentences, no obvious respiratory distress Skin: No obvious rashes, warm and dry Neurologic: Grossly intact no obvious asymmetries or abnormalities Psych, appropriate insight and affect, cooperative Initial Vital Signs Initial Vital Signs: Vital Signs Temperature 98 F 09/28/20 21:40 Pulse Rate 82 09/28/20 21:40 Respiratory Rate 20 09/28/20 21:40 Blood Pressure 142/81 H 09/28/20 21:40 Pulse Oximetry 98 09/28/20 21:40 Course Vital Signs Vital signs: Vital Signs - 8 hr 09/28/20 21:40 Temperature 98 F Pulse Rate 82 Respiratory Rate 20 Blood Pressure 142/81 H Pulse Oximetry 98 MDM - Skin/Abscess/Foreign Bdy MDM Narrative Medical decision making narrative: Exam is entirely consistent with a blocked parotid duct without evidence of mass or infection. No airway or posterior pharyngeal involvement to suggest other etiology at this point. Safe for home discharge Discharge Plan Departure Patient Disposition: Home Clinical Impression: Parotid duct obstruction Instructions: DI for Parotitis-Adult Activity Restrictions/Additional Instructions: Thank you for coming in this evening Your history and exam are entirely consistent with a blocked parotid duct. This gland can get more swollen but it will swell out ordered rather than in and impair your airway He eating and sucking on things that make you ?pucker like lemon or lemon drops can be helpful in encourage this to eventually drain. The majority of these will drain by themselves If you notice that it is getting red, hot, more swollen and more painful you need to return to the emergency department If you have any new or worsening symptoms I am happy to re-evaluate Thank you for coming in tonight Prescriptions: No Action guaifenesin [Mucinex] 600 MG tablet extended release 12hr 600 mg PO Q12HP PRN (Reason: Cough) Qty: 0 RF: 0 estradiol 0.01 % (0.1 mg/gram) cream See Rx Instructions .ROUTE .COMPLEX Qty: 42.5 RF: 2 hydrocodone-acetaminophen PO RF: 0 hydrocortisone acetate 1 % cream 1 applictn TOP BID PRNRF: 0 lidocaine [Lidoderm] 5 % adhesive patch,medicated 1 patch TOP DAILY PRNRF: 0 levothyroxine 25 mcg tablet 25 mcg PO DAILY RF: 0 Referrals: Curly Regan MD [Primary Care Provider] -
== END 2020-09-28 22:05 | disposition home or self-care (01) ==
PROVIDERS: Emergency Provider Emergency Medicine; PCP Internal Medicine
DX: K11.8 Other diseases of salivary glands (principal)
CPT/HCPCS: 99281

== ENCOUNTER → 2021-01-16 13:43 | Outpatient (CLI) | payer MEDICARE, MEDICAID, SELFPAY ==
[2021-01-16] MEDS: COVID-19 VACC, Ad26(JANSSEN)/PF 0.5 ML IM (14:02)
== END ==
PROVIDERS: PCP Internal Medicine; Visit Provider Internal Medicine
DX: Z23 Encounter for immunization (principal)
CPT/HCPCS: 0031A; 91303

== ENCOUNTER → 2021-04-12 18:48 | Outpatient (ROUT) | payer MEDICARE, MEDICAID, SELFPAY ==
[2021-04-12 19:18] LABS: Aspartate Aminotransferase 34 IU/L (14-36); BUN Creatinine Ratio 19.5 (6-22); Blood Urea Nitrogen 15 mg/dL (7-17); Calcium 9.7 mg/dL (8.4-10.2); Carbon Dioxide 26 mmol/L (22-32); Chloride 106 mmol/L (98-107); Cholesterol 223 mg/dL (140-199); Estimated Glomerular Filt Rate > 60.0 mL/min (>60); Glucose 94 mg/dL (80-110); HDL Cholesterol 92 mg/dL (40-60); HEMOLYSIS < 15 (0-50); LDL Cholesterol Calculated 115 mg/dL (<100); Sodium 139 mmol/L (137-145); Triglycerides 82 mg/dL (35-150)
[2021-04-12 19:31] LABS: Vitamin D 25 Hydroxy (D3) 65.8 ng/mL (30.0-100.0)
[2021-04-12 19:52] LABS: TSH w/ Reflex to FT4 3.43 uIU/mL (0.47-4.68)
== END ==
PROVIDERS: PCP Internal Medicine; Visit Provider Internal Medicine
DX: E78.2 Mixed hyperlipidemia (principal); E03.9 Hypothyroidism, unspecified; E55.9 Vitamin D deficiency, unspecified
CPT/HCPCS: 80048; 80061; 82306; 84443; 84450

== ENCOUNTER → 2022-03-27 15:57 | Outpatient (CLI) | payer MEDICARE, MEDICAID, SELFPAY ==
[2022-03-27 17:33] LABS: TSH w/ Reflex to FT4 2.97 uIU/mL (0.47-4.68)
== END ==
PROVIDERS: PCP Internal Medicine; Referring Provider Internal Medicine; Visit Provider Internal Medicine
DX: E07.9 Disorder of thyroid, unspecified (principal)
CPT/HCPCS: 36415; 84443

== ENCOUNTER → 2022-04-09 16:54 | Outpatient (CLI) | payer MEDICARE, MEDICAID, SELFPAY ==
[2022-04-09 18:47] LABS: Alanine Aminotransferase 21 IU/L (<35); Albumin 4.1 g/dL (3.5-5.0); Albumin Globulin Ratio 1.4 (1.0-2.8); Alkaline Phosphatase 84 U/L (38-126); Aspartate Aminotransferase 32 IU/L (14-36); BUN Creatinine Ratio 14.8 (6-22); Bilirubin Total 1.3 mg/dL (0.2-1.3); Blood Urea Nitrogen 13 mg/dL (7-17); Calcium 9.6 mg/dL (8.4-10.2); Carbon Dioxide 28 mmol/L (22-32); Chloride 104 mmol/L (98-107); Estimated Glomerular Filt Rate > 60 mL/min (>60); Glucose 101 mg/dL (80-110); HEMOLYSIS < 15 (0-50); Potassium 4.3 mmol/L (3.4-5.1); Sodium 137 mmol/L (137-145); Total Protein 7.1 g/dL (6.3-8.2)
[2022-04-09 19:17] LABS: Thyroid Stimulating Hormone 3.51 uIU/mL (0.47-4.68)
== END ==
PROVIDERS: PCP Internal Medicine; Referring Provider Internal Medicine Cardiovascular Disease; Visit Provider Internal Medicine Cardiovascular Disease
DX: I47.1 Supraventricular tachycardia (principal); R00.2 Palpitations; I49.1 Atrial premature depolarization
CPT/HCPCS: 36415; 80053; 83735; 84443

== ENCOUNTER 2022-04-12 21:15 | Emergency (ER) | payer MEDICARE, MEDICAID, SELFPAY ==
[2022-04-12 21:25] VITALS: BP 151/69; PULSE 78; RESP 20; TEMP 36.7; O2SAT 96; BMI 28.8
[2022-04-12 21:27] VITALS: PULSE 68; RESP 19; O2SAT 98
[2022-04-12 21:30] VITALS: PULSE 63; RESP 14; O2SAT 98
--- NOTE | 2022-04-12 21:32 | DI.RAD.S_ITS ---
PROCEDURE: XR CHEST 1V INDICATIONS: chest pain TECHNIQUE: One view of the chest was acquired. COMPARISON: [facility], CR, XR CHEST 2V, 05/13/2019, 14:55. FINDINGS: Surgical changes and devices: None. Lungs and pleura: There is an external monitor device projecting over the left hemithorax superiorly. Visualized lungs are clear. No pleural effusions or pneumothorax. Mediastinum: Mediastinal contours appear normal. Heart size is normal. Bones and chest wall: No suspicious bony lesions. Overlying soft tissues appear unremarkable. IMPRESSION: 1. No definite acute cardiopulmonary disease. Dictated by: Dimitri Barlow M.D. on 04/12/2022 at 22:37 Approved by: Dimitri Barlow M.D. on 04/12/2022 at 22:42
[2022-04-12 21:53] LABS: Alanine Aminotransferase 21 IU/L (<35); Albumin Globulin Ratio 1.3 (1.0-2.8); Alkaline Phosphatase 72 U/L (38-126); Aspartate Aminotransferase 30 IU/L (14-36); Bilirubin Total 1.5 mg/dL (0.2-1.3); Blood Urea Nitrogen 13 mg/dL (7-17); Carbon Dioxide 26 mmol/L (22-32); Chloride 106 mmol/L (98-107); Creatine Kinase 51 U/L (30-135); Estimated Glomerular Filt Rate > 60 mL/min (>60); Globulin 3.2 g/dL (1.7-4.1); Glucose 122 mg/dL (80-110); HEMOLYSIS < 15 (0-50); Lipase 127 U/L (23-300); Magnesium 2.1 mg/dL (1.6-2.3); Potassium 3.9 mmol/L (3.4-5.1); Sodium 140 mmol/L (137-145); Total Protein 7.2 g/dL (6.3-8.2)
[2022-04-12 22:00] VITALS: PULSE 69; RESP 18; O2SAT 96
[2022-04-12 22:05] LABS: Troponin I < 0.012 ng/mL (0.01-0.034)
[2022-04-12 22:06] LABS: Add Manual Diff / Slide Review NO; Basophils Absolute Auto 0 /uL (0-100); Basophils Percent Auto 0.6 % (0-2); Eosinophils Absolute Auto 100 /uL (0-450); Eosinophils Percent Auto 1.9 % (2-4); Hematocrit 42.2 % (36-46); Hemoglobin 14.3 g/dL (12.0-16.0); Lymphocytes Absolute Auto 2500 /uL (1100-4500); Lymphocytes Percent Auto 40.2 % (25-40); Mean Corpuscular HGB Conc 33.9 % (30-36); Mean Corpuscular Hemoglobin 30.6 PG (26-34); Mean Corpuscular Volume 90.4 fL (80-100); Monocytes Absolute Auto 400 /uL (0-900); Monocytes Percent Auto 6.8 % (3-14); Neutrophils Absolute Auto 3200 /uL (1500-7000); Neutrophils Percent Auto 50.5 % (50-75); Platelet Count 259 X10^3/uL (150-400); Red Blood Cell Count 4.68 X10^6/uL (4.0-5.2); Red Cell Distribution Width 12.9 % (11.6-14.8); White Blood Cell Count 6.3 X10^3/uL (4.5-11.0)
[2022-04-12 22:30] VITALS: PULSE 57; RESP 13; O2SAT 97
--- NOTE | 2022-04-12 22:40 | ED_ITS ---
HPI - Arrhythmia/Palpitations General Chief Complaint: Arrhythmia/Palpitations Stated Complaint: sent by MD for ekg Time Seen by Provider: 04/12/22 22:31 Source: patient Mode of arrival: Ambulatory History of Present Illness HPI narrative: Patient here for palpitations. Ongoing for 3 years and is followed by cardiology Dr. Cannon, patient had recent episode about 1 or 2 weeks ago and was seen by him. Had blood work done including thyroid studies. Unremarkable. Patient did have a Holter monitor that did not capture any abnormal rhythm. He instructed patient to go the ER if she ever had another episode. She did have that today. No chest pain no dyspnea. It feels slow she states and it skips. Patient denies any recent illnesses. EKG is sinus rhythm with premature atrial complexes. Her humidifier attendant is scheduling her for outpatient echocardiogram and stress test. Patient does have a Zio patch on Related Data Home Medications Medication Instructions Recorded Confirmed guaifenesin 600 mg tablet, 600 mg PO Q12HP PRN Cough ##0 07/31/16 03/09/22 extended release 12 hr (Mucinex) hydrocortisone acetate 1 % topical 1 applictn topical BID PRN 08/11/19 03/09/22 cream lidocaine 5 % topical patch 1 patch topical DAILY PRN 08/11/19 03/09/22 (Lidoderm) Previous Rx's Medication Instructions Recorded estradiol See Rx Instructions .Route 07/24/21 .COMPLEX #42.5 grams hydrocodone 5 mg-acetaminophen 325 0.5 tab PO QID PRN pain #50 tabs 03/09/22 mg tablet hydrocodone 5 mg-acetaminophen 325 0.5 tab PO QID PRN pain #50 tabs 03/09/22 mg tablet hydrocodone 5 mg-acetaminophen 325 0.5 tab PO QID PRN pain #50 tabs 03/09/22 mg tablet fluconazole 150 mg tablet 150 mg PO DAILY #1 tab 04/06/22 Allergies Allergy/AdvReac Type Severity Reaction Status Date / Time No Known Drug Allergies Allergy Verified 03/09/22 11:23 Review of Systems Review of Systems Narrative: GENERAL: Denies chills, fatigue, malaise, fever, sweats. HEENT: Denies sinus pain, ear pain, sore throat RESPIRATORY: Denies dyspnea, cough CARDIOVASCULAR: Denies chest pain, positive for palpitations GASTROINTESTINAL: Denies nausea, vomiting, abdominal pain : Denies dysuria, frequency, hematuria MUSCULOSKELETAL: denies muscle or bony pain SKIN: Denies rash, skin lesions NEUROLOGIC: Denies weakness, numbness ROS Unobtainable: All systems reviewed & are unremarkable except as noted in HPI and below Patient History Medical History Allergic rhinitis Chronic back pain Chronic, continuous use of opioids History of paroxysmal supraventricular tachycardia Hypothyroid Menopausal syndrome Primary osteoarthritis involving multiple joints Social History Smoking Status: Former smoker Smoking Status: Former smoker alcohol intake frequency: a few times a month Substance Use Type: does not use Exam Narrative Exam Narrative: GENERAL: in no distress, not toxic not dyspneic HEAD: Normocephalic. EYES: Pupils equal round No scleral icterus. ENT: Mucous membranes moist. NECK: Trachea midline. CARDIOVASCULAR: Regular rate and rhythm without murmurs RESPIRATORY: Clear to auscultation. Breath sounds equal bilaterally. No wheezes, rales, or rhonchi. GASTROINTESTINAL: Abdomen soft, non-tender EXTREMITIES: No gross deformities. NEURO: AOx4. SKIN: Warm and dry PSYCH: Not anxious, is cooperative Initial Vital Signs Initial Vital Signs: Vital Signs Temperature 98.0 F 04/12/22 21:25 Pulse Rate 78 04/12/22 21:25 Respiratory Rate 20 04/12/22 21:25 Blood Pressure 151/69 H 04/12/22 21:25 Pulse Oximetry 96 04/12/22 21:25 Oxygen Delivery Method 04/12/22 21:25 Course Course Course Narrative: No new issues during course of stay Orders Ordered: ED Orders 04/12/22 21:32 XR chest 1V Stat EKG-12 Lead Stat 04/12/22 21:33 Complete Blood Count AUTO DIFF Stat Comprehensive Metabolic Panel Stat Lipase Stat Magnesium Stat Troponin & CK Cardiac Panel Stat Reevaluation(s) Reevaluation #1: Patient denies any chest pain or palpitations. Reviewed results with her. She agrees for discharge home. Return precautions reviewed with her. She does have a Zio patch Time: 22:46 Consultations Consultation #1: Spoke with cardiology dr quesada, will need to follow-up with Dr. Cannon, no need for admit. Appropriate for outpatient echocardiogram and stress test. Time: 22:47 Vital Signs Vital signs: Vital Signs - 8 hr 04/12/22 21:25 04/12/22 21:27 04/12/22 21:30 Temperature 98.0 F Pulse Rate 78 68 63 Respiratory Rate 20 19 14 Blood Pressure 151/69 H Pulse Oximetry 96 98 98 Oxygen Delivery Method Room Air Room Air 04/12/22 22:00 04/12/22 22:30 Temperature Pulse Rate 69 57 L Respiratory Rate 18 13 Blood Pressure Pulse Oximetry 96 97 Oxygen Delivery Method Room Air Room Air MDM - Arrhythmia/Palpitations Differential Diagnosis Differential diagnosis: Likely palpitations, anxiety, sinus tachycardia, artial fibrillation, artial flutter, ventricular premature beats, supraventricular tachycardia, ventricular tachycardia and WPW Lab Data Result diagrams: 04/12/22 21:33 04/12/22 21:33 Labs: Lab Results 04/12/22 04/12/22 Range/Units 21:33 21:33 WBC 6.3 (4.5-11.0) X10^3/uL RBC 4.68 (4.0-5.2) X10^6/uL Hgb 14.3 (12.0-16.0) g/dL Hct 42.2 (36-46) % MCV 90.4 (80-100) fL MCH 30.6 (26-34) PG MCHC 33.9 (30-36) % RDW 12.9 (11.6-14.8) % Plt Count 259 (150-400) X10^3/uL Neut % (Auto) 50.5 (50-75) % Lymph % (Auto) 40.2 H (25-40) % [place] % (Auto) 6.8 (3-14) % Eos % (Auto) 1.9 L (2-4) % Baso % (Auto) 0.6 (0-2) % Neut # (Auto) 3200 (8700-3180) /uL Lymph # (Auto) 2500 (6791-2899) /uL [place] # (Auto) 400 (0-900) /uL Eos # (Auto) 100 (0-450) /uL Baso # (Auto) 0 (0-100) /uL Sodium 140 (137-145) mmol/L Potassium 3.9 (3.4-5.1) mmol/L Chloride 106 (98-107) mmol/L Carbon Dioxide 26 (22-32) mmol/L BUN 13 (7-17) mg/dL Creatinine 0.81 (0.52-1.04) mg/dL Estimated GFR > 60 (>60) mL/min BUN/Creatinine Ratio 16.0 (6-22) Glucose 122 H (80-110) mg/dL Calcium 9.0 (8.4-10.2) mg/dL Magnesium 2.1 (1.6-2.3) mg/dL Total Bilirubin 1.5 H (0.2-1.3) mg/dL AST 30 (14-36) IU/L ALT 21 (<35) IU/L Alkaline Phosphatase 72 (38-126) U/L Total Creatine Kinase 51 (30-135) U/L CK-MB (CK-2) TNP CK-MB (CK-2) Rel Index TNP Troponin I < 0.012 (0.01-0.034) ng/mL Total Protein 7.2 (6.3-8.2) g/dL Albumin 4.0 (3.5-5.0) g/dL Globulin 3.2 (1.7-4.1) g/dL Albumin/Globulin Ratio 1.3 (1.0-2.8) Lipase 127 (23-300) U/L Imaging Data Chest x-ray: Radiologist's Impresson: [address] [address] XRay Report Signed Patient: Sonali Stearns MR#: [id number] : 1945 Acct:[id number] Age/Sex: 76 / F Date of Service: 04/12/22 Loc: ED Accession Number: [id number] ?? Procedure: XR chest 1V Ordering Provider: Bhupendra Hooker MD PROCEDURE:? XR CHEST 1V ? INDICATIONS:? chest pain ? TECHNIQUE:? One view of the chest was acquired.? ? COMPARISON:? [facility], CR, XR CHEST 2V, 05/13/2019, 14:55. ? FINDINGS:? ? Surgical changes and devices:? None.? ? Lungs and pleura:? There is an external monitor device projecting over the left hemithorax superiorly.? Visualized lungs are clear.? No pleural effusions or pneumothorax.? ? Mediastinum:? Mediastinal contours appear normal.? Heart size is normal.? ? Bones and chest wall:? No suspicious bony lesions.? Overlying soft tissues appear unremarkable.? ? IMPRESSION:? ? 1. No definite acute cardiopulmonary disease. ? ? Dictated by: Dimitri Barlow M.D. on 04/12/2022 at 22:37 ? ? Approved by: Dimitri Barlow M.D. on 04/12/2022 at 22:42 ? ECG Data Interpretation: Sinus rhythm rate 66 premature atrial complexes, no ST elevation or depression MDM Narrative Medical decision making narrative: Appropriate for discharge home. Palpitations ongoing for at least 2 weeks. However being worked up for the past 3 years. She does have established humidifier attendant. I reviewed with her cardiology group roger. Recommends discharge home for outpatient echocardiogram and stress test. Currently patient has no symptoms. Never had chest pain. Return precautions reviewed with her. She desires discharge home Discharge Plan Departure Patient Disposition: Home Clinical Impression: Palpitations Instructions: DI for Arrhythmias Activity Restrictions/Additional Instructions: Continue home medications. See your humidifier attendant as scheduled for scheduling for echocardiogram and stress test. Return if worse or for any questions or concerns. Prescriptions: No Action guaifenesin [Mucinex] 600 MG tablet extended release 12hr 600 mg PO Q12HP PRN (Reason: Cough) Qty: 0 estradiol 0.01 % (0.1 mg/gram) cream See Rx Instructions .ROUTE .COMPLEX Qty: 42.5 0RF Dose Instruction: INSERT 0.5GM INSIDE VAGINA AND A SMALL AMOUNT TO THE OUTSIDE TWICE A WEEK Rx Instructions: INSERT 0.5GM INSIDE VAGINA AND A SMALL AMOUNT TO THE OUTSIDE TWICE A WEEK. Call for Appointment. fluconazole 150 mg tablet 150 mg PO DAILY Qty: 1 3RF Rx Instructions: 150mg po x 1, may repeat in 3 days if needed hydrocodone-acetaminophen 5-325 mg tablet 0.5 tab PO QID PRN (Reason: pain) Qty: 50 0RF hydrocodone-acetaminophen 5-325 mg tablet 0.5 tab PO QID PRN (Reason: pain) Qty: 50 0RF hydrocodone-acetaminophen 5-325 mg tablet 0.5 tab PO QID PRN (Reason: pain) Qty: 50 0RF hydrocortisone acetate 1 % cream 1 applictn TOP BID PRN lidocaine [Lidoderm] 5 % adhesive patch,medicated 1 patch TOP DAILY PRN Referrals: Curly Regna MD [Primary Care Provider] - Visit Report Forms: Patient Portal/API
== END 2022-04-12 23:06 | disposition home or self-care (01) ==
PROVIDERS: Emergency Provider Emergency Medicine; PCP Internal Medicine
DX: R00.2 Palpitations (principal); R07.9 Chest pain, unspecified
CPT/HCPCS: 36415; 71045; 80053; 82550; 83690; 83735; 84484; 85025; 93005; 93010; 99283

== ENCOUNTER → 2022-05-18 15:18 | Outpatient (CLI) | payer MEDICARE, MEDICAID, SELFPAY ==
--- NOTE | 2022-05-18 15:19 | DI.US.S_ITS ---
PROCEDURE: US PELVIC COMPLETE INDICATIONS: POST MENOPAUSAL SPOTTING TECHNIQUE: Real-time scanning was performed of the pelvic organs, with image documentation. Additional endovaginal scanning was necessary due to incomplete visualization of the adnexal and endometrial structures by transabdominal scanning. COMPARISON: [facility], US, US PELVIC COMPLETE, 06/10/2019, 11:44. FINDINGS: Uterus: Uterus is anteverted and normal in size at 5.7 x 3.1 x 4.2 cm. The myometrium is mildly heterogeneous. No discrete uterine fibroid is seen. The endometrium measures 2.2 mm combined thickness. No endometrial mass or fluid is seen. Ovaries: Bilateral ovaries are not visualized on this study. No adnexal masses are seen. Other: No pathologic free abdominal or pelvic fluid. IMPRESSION: 1. No gross abnormality is seen in uterus and endometrium. 2. Ovaries are not visualized. No gross adnexal mass is seen. No pelvic free fluid. We strive to produce accurate, complete, and clear reports of imaging services. To assist us in improving patient care, this report was composed using standard report templates and voice recognition software. Therefore, it may contain abnormal punctuation, insertions and/or omissions. Occasional wrong-word or sound-alike substitutions may occur. Though we review the report and make efforts to correct it, we do recommend that the report be read carefully in proper context to recognize any text inaccuracies. Dictated by: Scott Kelly M.D. on 05/18/2022 at 16:34 Approved by: Scott Kelly M.D. on 05/18/2022 at 16:35
== END ==
PROVIDERS: PCP Internal Medicine; Referring Provider Obstetrics & Gynecology; Visit Provider Obstetrics & Gynecology
DX: N95.0 Postmenopausal bleeding (principal)
CPT/HCPCS: 76830; 76856

== ENCOUNTER → 2022-05-27 13:43 | Outpatient (CLI) | payer MEDICARE, MEDICAID, SELFPAY ==
--- NOTE | 2022-05-27 14:11 | DI.MRI.S_ITS ---
PROCEDURE: MR ANKLE RT WO CON INDICATIONS: RIGHT ANKLE PAIN TECHNIQUE: Noncontrast sagittal T1 spin echo and T2 fast spin echo with fat saturation, axial proton density fast spin echo and T2 fast spin echo with fat saturation, coronal T1 spin echo and T2 fast spin echo with fat saturation through the ankle/hindfoot. COMPARISON: None. FINDINGS: Image quality: Excellent. Bones and joints: No acute bone marrow contusions or fractures. Sagging of the midfoot is seen, consistent with pes planus. No hindfoot coalitions. No osteochondral injuries of the talar dome. Mild degenerative spurring of the dorsal talonavicular joint. Nonedematous ossifications are seen dorsal lateral to the talonavicular joint, the larger of which measures up to 14 mm in maximum dimension. Small nonedematous plantar calcaneal enthesophyte. Nonspecific subcutaneous edema is seen predominantly at the medial aspect of the ankle. Medial structures: There is medial bowing of the tibiospring ligament and the superomedial band of the spring ligament around the talar head. No ligament tearing is seen. The deep fibers of the deltoid ligament are intact. Fluid is seen within the distal posterior tibialis tendon, consistent with partial tearing. Findings are superimposed on tendinosis and tenosynovitis. The flexor digitorum longus and flexor hallucis longus tendons are intact. The posterior tibial neurovascular bundle appears normal within the tarsal tunnel, without extrinsic mass effect. Lateral structures: The anterior talofibular ligament is attenuated and mildly indistinct, consistent with a chronic moderate grade sprain. The calcaneofibular ligament and posterior talofibular ligament are intact. The anterior and posterior tibiofibular ligaments appear intact. The peroneus longus and brevis tendons demonstrate normal location and morphology. The sinus tarsi demonstrates normal fatty signal. Anterior structures: The tibialis anterior, extensor hallucis longus, and extensor digitorum longus tendons appear intact. The dorsal talonavicular ligament appears intact. Posterior and plantar structures: Mild Achilles tendinosis. Mild thickening of the proximal plantar fascia is consistent with mild chronic plantar fasciitis. No disproportion abductor digiti quinti muscle atrophy to suggest Oconnell neuropathy. IMPRESSION: 1. Partial intrasubstance tearing of the distal posterior tibialis tendon superimposed on tendinosis and tenosynovitis. 2. Pes planus alignment. 3. The tibiospring ligament and superomedial band of the spring ligament are bowed medially around the talar head without ligament discontinuity. 4. Chronic grade 2 sprain of the anterior talofibular ligament. 5. Dorsal spurring of the talonavicular joint. 6. Nonedematous ossifications are seen dorsal to the talonavicular joint that are nonspecific but may be related to remote prior trauma. 7. Mild Achilles tendinosis. 8. Mild chronic plantar fasciitis. Dictated by: Broderick Mora M.D. on 05/28/2022 at 11:39 Approved by: Broderick Mora M.D. on 05/28/2022 at 11:51
== END ==
PROVIDERS: PCP Internal Medicine; Referring Provider Podiatrist; Visit Provider Podiatrist
DX: S93.491A Sprain of other ligament of right ankle, initial encounter (principal); S96.811A Strain of other specified muscles and tendons at ankle and foot level, right foot, initial encounter; M76.821 Posterior tibial tendinitis, right leg; M72.2 Plantar fascial fibromatosis
CPT/HCPCS: 73721

== ENCOUNTER → 2022-05-28 14:59 | Outpatient (CLI) | payer MEDICARE, MEDICAID, SELFPAY | PROVIDERS: PCP Internal Medicine; Referring Provider Internal Medicine; Visit Provider Internal Medicine | DX: Z78.0 Asymptomatic menopausal state (principal); Z13.820 Encounter for screening for osteoporosis; M85.89 Other specified disorders of bone density and structure, multiple sites; Z92.23 Personal history of estrogen therapy; Z87.311 Personal history of (healed) other pathological fracture | CPT/HCPCS: 77080 ==

== ENCOUNTER → 2022-06-21 15:04 | Outpatient (CLI) | payer MEDICARE, MEDICAID, SELFPAY ==
--- NOTE | 2022-06-21 | DI.ECHO.S_ITS ---
[place] [facility]---------+ [facility] +---------+ : : [address] : : : : [id number] : : : : Phone: [phone]+ Echocardiogram Report + + :Name: ELYSIA LYNN Study Date: 06/21/2022 Height: 68 in : :[facility] ReadingLocation: Weight: 190 lb : : Gender: Female BSA: 2.0 m2 : :: 1945 Age: 77 yrs BP: 125/97 mmHg: :Reason For Study: Palpitations : :Ordering Physician: FERNANDEZ, : :JENNIFER Performed By: Akshat Dunlpa : :Referring: JENNIFER PRESLEY : + + Interpretation Summary The left ventricle is normal in size and wall thickness. The ejection fraction is estimated to be 60-65%. No significant diastolic dysfunction. No significant change in LVEF from the previous study. The right ventricle is normal in size and function. No significant valvular pathology seen. No significant plaque in the aortic arch. Previously mild atherosclerotic plaque in the aortic arch. The IVC is of normal diameter and collapses greater than 50% with a sniff. This suggests a low right atrial pressure of 3 mm Hg. Procedure: A two-dimensional transthoracic echocardiogram with color flow and Doppler was performed. The study quality was technically adequate. Comparison is made with the echocardiogram of 05/23/2018. The patient was in normal sinus rhythm during the exam. Left Ventricle: The left ventricle is normal in size and wall thickness. There is no thrombus. Left ventricular systolic function is normal. The ejection fraction is estimated to be 60-65%. There are no focal wall motion abnormalities. MV E/A: 1.6 Med Peak E' Jarvis: 7.8 cm/sec E/E' med: 12.4. Right Ventricle: The right ventricle is normal in size and function. Atria: Both atria are mildly dilated. The left atrium has remained unchanged in size since the prior echo exam. The interatrial septum grossly appears intact with no obvious evidence for an atrial septal defect. Mitral Valve: The mitral valve chordae are thickened and/or calcified. There is mild mitral annular calcification. There is trace mitral regurgitation. Aortic Valve: The aortic valve is normal in structure and function. The aortic valve is trileaflet. There is no aortic valve stenosis. No aortic regurgitation is present. Tricuspid Valve: The tricuspid valve is normal in structure and function. No tricuspid regurgitation. Pulmonary artery pressures cannot be estimated because of the lack of a measurable TR jet velocity. Pulmonic Valve: The pulmonic valve is not well seen, but is grossly normal. There is no pulmonic valvular regurgitation. Great Vessels: The aortic root is normal size. The dimensions of the ascending aorta are normal. The IVC is of normal diameter and collapses greater than 50% with a sniff. This suggests a low right atrial pressure of 3 mm Hg. Pericardium/ Pleura There is no pericardial effusion. There is no pleural effusion. MMode/2D Measurements & Calculations LVIDd: 5.3 cm LVOT diam: 2.0 cm LVIDs: 3.6 cm Ao root diam: 3.0 cm FS: 32.1 % asc Aorta Diam: 3.4 cm IVSd: 0.80 cm LVPWd: 0.60 cm LV walker. diameter/BSA (cm/m^2): 2.7 LV sys. diameter/BSA (cm/m^2): 1.8 LA dimension: 4.0 cm RA long axis: 5.9 cm LA A2 area: 22.8 cm2 LA A4 area: 21.4 cm2 LA length (vol): 6.1 cm LA vol: 68.5 ml LA vol index: 34.2 ml/m2 TAPSE_phl: 2.6 cm Doppler Measurements & Calculations Ao V2 max: 138.0 cm/sec LVOT Max Jarvis: 138.0 cm/sec Ao V2 mean: 101.0 cm/sec LV V1 max P.6 mmHg Ao max P.0 mmHg LV V1 VTI: 28.0 cm Ao mean P.0 mmHg KEMAL(I,D): 3.0 cm2 Ao V2 VTI: 29.3 cm KEMAL(V,D): 3.1 cm2 sev ratio: 0.96 KEMAL indexed to BSA (cm^2/m^2): 1.5 MV E max jarvis: 97.0 cm/sec SV(LVOT): 88.0 ml MV A max jarvis: 59.7 cm/sec MV E/A: 1.6 Med Peak E' Jarvis: 7.8 cm/sec E/E' med: 12.4 Lat Peak E' Jarvis: 9.5 cm/sec E/E' lat: 10.2 E/e' average: 11.3 MV dec time: 0.18 sec AV VR_phl: 1.0 MV P1/2t-pr_phl: 52.0 msec KEMAL(VTI)/BSA_phl: 1.5 Reading Physician:10:57 AM
== END ==
PROVIDERS: PCP Internal Medicine; Referring Provider Internal Medicine Cardiovascular Disease; Visit Provider Internal Medicine Cardiovascular Disease
DX: R00.2 Palpitations (principal); R06.02 Shortness of breath
CPT/HCPCS: 93306

== ENCOUNTER → 2022-07-18 16:52 | Outpatient (CLI) | payer MEDICARE, MEDICAID, SELFPAY ==
--- NOTE | 2022-07-18 16:53 | DI.RAD.S_ITS ---
PROCEDURE: XR WRIST RT MIN 3V INDICATIONS: Right wrist pain TECHNIQUE: < for views of the wrist were acquired. COMPARISON: None. 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 Scattered other areas arthrosis are also seen in the hands and wrists. Possible geode or prior erosion at the base of the 3rd metacarpal. Slightly sclerotic appearance of the proximal scaphoid compared to the distal pole. No acute fracture or dislocation. Scaphoid view: Unremarkable Soft tissues: No suspicious soft tissue calcifications. 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 Other areas of arthrosis also present. Possible geode or prior erosion at the base of the 3rd metacarpal. Slightly sclerotic appearance of the proximal scaphoid pole could be from prior AVN, versus artifact. If there is high concern for internal derangement, consider MRI. Dictated by: Francisco Hubbard M.D. on 07/19/2022 at 10:00 Approved by: Francisco Hubbard M.D. on 07/19/2022 at 10:07
== END ==
PROVIDERS: PCP Internal Medicine; Referring Provider Internal Medicine; Visit Provider Internal Medicine
DX: M25.531 Pain in right wrist (principal); M19.031 Primary osteoarthritis, right wrist
CPT/HCPCS: 73110

== ENCOUNTER → 2022-08-03 13:30 | Outpatient (CLI) | payer MEDICARE, MEDICAID, SELFPAY ==
--- NOTE | 2022-08-03 13:31 | DI.MRI.S_ITS ---
PROCEDURE: MR WRIST RT W CON INDICATIONS: right wrist pain TECHNIQUE: After the administration of 3-4 mL of dilute intra-articular Gadolinium contrast into the radiocarpal compartment, coronal T1 spin echo with fat saturation and T2 fast spin echo with fat saturation, axial T1 spin echo and T2 fast spin echo with fat saturation, sagittal T1 spin echo with and without fat saturation through the wrist. COMPARISON: [facility], CR, XR WRIST RT MIN 3V, 07/18/2022, 17:08. FINDINGS: Image quality: Excellent. Bones and cartilage: Osteoarthritic changes are noted throughout wrist joints. There is suggestion of old healed scaphoid waist fracture with sclerotic changes along fracture site. Mild marrow edema and subcortical cystic area involving proximal portion of the scaphoid is seen which could represent early avascular necrosis. No deformity of the scaphoid is noted. No other area of abnormal marrow signal is noted. Carpal ligaments: The scapholunate and lunotriquetral ligaments appear intact. The radioscaphocapitate and radiolunotriquetral ligaments appear intact. The arcuate ligament and short radiolunate ligament also appear normal. The dorsal intercarpal and radiotriquetral ligaments appear intact. On sagittal images, the pisohamate ligament appears intact. Triangular fibrocartilage complex: There is triangular fibrocartilage tear near its radial insertion with gadolinium extravasation into the distal radioulnar joint. The adjacent meniscal homolog appears normal. The ulnar collateral ligament appears intact. The extensor carpi ulnaris tendon is normal in location and morphology. Tendons and soft tissues: The carpal tunnel structures appear normal, including the median nerve. The ulnar nerve appears normal within Guyon's canal. All six extensor tendon compartments demonstrate normal morphology, without pathologic tendon sheath fluid. No soft tissue ganglion cysts. IMPRESSION: 1. 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 Suggestion of old healed scaphoid waist fracture. Edema and subcortical cystic areas seen in proximal portion of the scaphoid, early avascular necrosis cannot be excluded. No scaphoid deformity is seen. 2. Scapholunate and lunotriquetral ligaments are grossly intact. 3. Suggestion of triangular fibrocartilage tear near radial insertion with contrast extending to distal radial ulnar joint. 4. Extensor and flexor tendons are grossly intact. Dictated by: Scott Kelly M.D. on 08/03/2022 at 16:31 Approved by: Scott Kelly M.D. on 08/03/2022 at 16:40
--- NOTE | 2022-08-03 13:32 | DI.RAD.S_ITS ---
PROCEDURE: FL WRIST INJECTION MR/CT RT INDICATIONS: RIGHT WRIST PAIN COMPARISON: [facility], MR, MR WRIST RT W CON, 08/03/2022, 13:59. TECHNIQUE: After informed consent had been obtained, the wrist was examined fluoroscopically, and a site chosen for injection of the radiocarpal compartment from a dorsal approach. Skin was prepped and draped in a sterile fashion and 1% lidocaine infiltrated from the skin down to the articular surface. A hypodermic needle was then introduced into the articular space and a modest amount of contrast medium was instilled confirming intra-articular needle tip placement. This was followed by approximately 4 mL of a dilute gadolinium solution. Needle was removed and dressing was applied. The patient experienced no complications throughout the procedure and left the fluoroscopic suite in no apparent distress. FINDINGS: A single fluoroscopic spot image demonstrates intra-articular location to injected iodinated contrast. IMPRESSION: Successful fluoroscopic-guided administration of dilute Gadolinium solution for wrist MR arthrogram. Dictated by: Brandin Caldera M.D. on 08/03/2022 at 15:09 Approved by: Brandin Caldera M.D. on 08/03/2022 at 15:12
== END ==
PROVIDERS: PCP Internal Medicine; Referring Provider Internal Medicine; Visit Provider Internal Medicine
DX: M19.031 Primary osteoarthritis, right wrist (principal); M25.531 Pain in right wrist
CPT/HCPCS: 20605; 73222; 77002

== ENCOUNTER → 2022-09-10 15:26 | Outpatient (CLI) | payer MEDICARE, MEDICAID, SELFPAY ==
--- NOTE | 2022-09-10 15:27 | DI.MRI.S_ITS ---
PROCEDURE: MR LUMBAR SPINE WO CON INDICATIONS: Need updated imaging, chronic back pain/lumbar stenosis TECHNIQUE: Noncontrast sagittal T1 spin echo and T2 fast echo, sagittal STIR, and T2 fast spin echo through the lumbar spine. In cases with scoliosis, additional coronal T2 fast spin echo may be performed. COMPARISON: [facility], MR, MR LUMBAR SPINE WO CON, 07/22/2019, 15:09. FINDINGS: Image quality: Excellent. Alignment and Curvature: There is normal bony alignment. Bone Marrow: Marrow is of normal overall signal. No acute vertebral body compression fractures. Spinal Cord: Conus medullaris terminates at the L1 level. Visualized cord demonstrates normal signal and size. Paraspinous Soft Tissues: No paravertebral masses. Hepatic and renal cysts are noted. T12-L1: Minimal diffuse disc bulge. No significant central canal or neural foraminal stenosis. L1-L2: Minimal diffuse disc bulge. No significant central canal or neural foraminal stenosis. L2-L3: Small diffuse disc bulge. No significant central canal or neural foraminal stenosis. L3-L4: Mild diffuse disc bulge. Mild to moderate bilateral neural foraminal stenosis. There is qvsy-nr-vukvmvmp central canal stenosis present multifactorial origin secondary to the to the diffuse disc bulge, ligamentum flavum buckling, and bilateral facet degenerative change. L4-L5: Mild diffuse disc bulge. Mild bilateral neural foraminal stenosis. No central canal stenosis. L5-S1: Mild diffuse disc bulge. Mild right and severe left-sided neural foraminal stenosis. No central canal stenosis. IMPRESSION: Degenerative changes noted throughout the patient's lumbar spine as described above on a level by level basis with the L3-4 level being most severely affected. REFERENCE DELETE FROM FINAL REPORT Less common manifestations of disc degeneration: * dorsal epidural disc herniation. * intradural disc herniation (may have beaklike morphology). * symptomatic thoracic herniation: often, calcified, intradural. * far lateral disc herniation. * discal cyst: may have blood-fluid level. * fibrocartilaginous embolism of disc material to spinal cord. * calcified disc or bony spicule causing spinal CSF leak. Lumbar disc nomenclature v2.0: Recommendations of the combined task forces of the [place] [employer], [place] [employer], and [place] [employer] Annular fissures: seen as high intensity zones on MRI. Concentric, radial, transverse. Degeneration encompasses: desiccation, fibrosis, disc narrowing, diffuse bulge, fissuring, mucinous degeneration of annulus, intradiscal gas, vertebral apophyseal osteophytes, end plate defects, inflammatory changes and sclerosis (Modic types I-III). Disc herniation: localized or focal displacement of disc material less than 25% (90 degrees) of disc periphery on axial images. Diffuse bulging and asymmetric bulging (>25%) are not considered herniation. * Protrusion, extrusion, sequestration. * Disc fragment can migrate (refers only to position, not contiguity). * Intravertebral herniations (aka Schmorl nodes). * Herniations may be contained (if covered by intact outer annulus and/or PLL) vs uncontained. Subligamentous is considered synonymous with contained. A sequestered and/or migrated disc fragment can still be contained. Canal and foraminal stenosis: use 2-D measurements at site of most marked compromise. * Mild: canal compromise of less than 1/3. * Moderate: canal compromise of 1/3 to 2/3. * Severe: canal compromise of greater than 2/3. Location descriptors: * Central, right/left central, right/left subarticular, right/left foraminal, right/left extraforaminal or far lateral. Right/left central should supersede paracentral (a more general term). * In sagittal plane: discal, infrapedicular, suprapedicular, or pedicular. Dictated by: Amarjit Corona M.D. on 09/10/2022 at 16:54 Approved by: Amarjit Corona M.D. on 09/10/2022 at 17:03
== END ==
PROVIDERS: PCP Internal Medicine; Referring Provider Internal Medicine; Visit Provider Internal Medicine
DX: M47.816 Spondylosis without myelopathy or radiculopathy, lumbar region (principal); M48.061 Spinal stenosis, lumbar region without neurogenic claudication; M48.07 Spinal stenosis, lumbosacral region; M54.50 Low back pain, unspecified; G89.29 Other chronic pain
CPT/HCPCS: 72148

== ENCOUNTER → 2023-01-28 15:52 | Outpatient (CLI) | payer MEDICARE, MEDICAID, SELFPAY ==
[2023-01-28 17:05] LABS: BUN Creatinine Ratio 23.1 (6-22); Blood Urea Nitrogen 18 mg/dL (7-17); Calcium 9.3 mg/dL (8.4-10.2); Carbon Dioxide 28 mmol/L (22-32); Chloride 105 mmol/L (98-107); Estimated Glomerular Filt Rate > 60 mL/min (>60); Glucose 96 mg/dL (80-110); HEMOLYSIS 20 (0-50); Potassium 4.4 mmol/L (3.4-5.1); Sodium 138 mmol/L (137-145)
== END ==
PROVIDERS: PCP Internal Medicine; Referring Provider Internal Medicine; Visit Provider Internal Medicine
DX: D32.9 Benign neoplasm of meninges, unspecified (principal)
CPT/HCPCS: 36415; 80048

== ENCOUNTER → 2023-02-01 16:12 | Outpatient (CLI) | payer MEDICARE, MEDICAID, SELFPAY ==
--- NOTE | 2023-02-01 16:14 | DI.MRI.S_ITS ---
PROCEDURE: MR HEAD/BRAIN WO/W CON INDICATIONS: followup meningioma TECHNIQUE: Noncontrast axial T1 spin echo, axial T2 fast spin echo, sagittal and axial FLAIR, coronal T2 fast spin echo, axial gradient echo, axial diffusion and ADC through the brain. After the administration of contrast, axial and coronal and sagittal T1 spin echo with fat saturation through the brain. COMPARISON: [facility], MR, MR HEAD/BRAIN WO/W CON, 06/09/2018, 13:04. [facility], MR, MR HEAD/BRAIN WO/W CON, 10/30/2018, 13:18. [facility], MR, MR HEAD/BRAIN WO/W CON, 11/12/2019, 14:35. FINDINGS: Image quality: Diagnostic CSF spaces: Basal cisterns are patent. No extra-axial fluid collections. Ventricles are normal in size and shape. Brain: Enhancing extra-axial lesion can be seen superior to the left frontal lobe, as previously demonstrated, measuring 10 x 6 x 8 mm, which is similar to priors. No midline shift. There is cerebral volume loss for age. There is periventricular white matter chronic small vessel ischemic change. The brainstem appears normal. Diffusion-weighted images demonstrate no acute ischemic insults. No chronic ischemic insults. Normal intravascular flow voids are present. Skull and face: Calvarial marrow is normal in signal. Orbits appear normal. Note is made of bilateral lens replacements. Sinuses: Sinuses and mastoids appear clear. IMPRESSION: Stable extra-axial enhancing lesion, which is consistent with the given clinical history of a meningioma. Dictated by: Sukumar Washburn M.D. on 02/01/2023 at 16:53 Approved by: Sukumar Washburn M.D. on 02/01/2023 at 16:56
== END ==
PROVIDERS: PCP Internal Medicine; Referring Provider Internal Medicine; Visit Provider Internal Medicine
DX: D32.0 Benign neoplasm of cerebral meninges (principal)
CPT/HCPCS: 70553

== ENCOUNTER → 2023-04-02 17:20 | Outpatient (CLI) | payer MEDICARE, MEDICAID, SELFPAY ==
--- NOTE | 2023-04-02 17:24 | DI.MRI.S_ITS ---
PROCEDURE: MR LUMBAR SPINE WO CON INDICATIONS: Chronic back pain, neurosurgery requires updated scan TECHNIQUE: Noncontrast sagittal T1 spin echo and T2 fast echo, sagittal STIR, and T2 fast spin echo through the lumbar spine. In cases with scoliosis, additional coronal T2 fast spin echo may be performed. COMPARISON: [facility], MR, MR LUMBAR SPINE WO CON, 09/10/2022, 15:27. FINDINGS: Image quality: Excellent. Alignment and Curvature: There is normal bony alignment. Bone Marrow: Marrow is of normal overall signal. No acute vertebral body compression fractures. Spinal Cord: Conus medullaris terminates at the L1 level. Visualized cord demonstrates normal signal and size. Paraspinous Soft Tissues: No paravertebral masses. Bilateral T2 hyperintense lesions are visualized within the kidneys suggesting the presence of simple renal cysts which are incompletely characterized on this limited view. T12-L1: Mild disc desiccation and height loss. Broad-based disc bulge. No canal stenosis. No foraminal stenosis. These findings are unchanged from the study dated September 10, 2022. L1-L2: Mild disc desiccation and height loss. Broad-based disc bulge. No canal stenosis. No neural foraminal stenosis. No interval change. L2-L3: Mild disc desiccation and height loss. Broad-based disc bulge. No canal stenosis. Mild bilateral foraminal stenosis. No interval change. L3-L4: Mild disc desiccation and height loss. Broad-based disc bulge. Severe facet ligamentum flavum hypertrophy. Moderate canal stenosis. Moderate bilateral neural foraminal stenosis. The degree of canal stenosis is unchanged from the prior study. There is slightly increased bilateral foraminal stenosis when compared with the prior study. L4-L5: Mild disc desiccation. Broad-based disc bulge. Severe facet and ligamentum flavum hypertrophy. Mild canal stenosis. No foraminal stenosis. Findings are unchanged. L5-S1: Severe disc desiccation and height loss. Patient is status post left hemilaminectomy. No canal stenosis. Mild facet sclerosis. Moderate left foraminal stenosis. No right neural foraminal stenosis. Findings are unchanged from the prior study. IMPRESSION: 1. Overall findings are similar to the comparison MRI dated September 10, 2022. However, there is slightly increased bilateral foraminal stenosis at L3-4 when compared with the prior study. Dictated by: Aviva Delvalle M.D. on 04/03/2023 at 10:11 Approved by: Aviva Delvalle M.D. on 04/03/2023 at 11:19
== END ==
PROVIDERS: PCP Internal Medicine; Referring Provider Internal Medicine; Visit Provider Internal Medicine
DX: M54.50 Low back pain, unspecified (principal); G89.29 Other chronic pain; M48.061 Spinal stenosis, lumbar region without neurogenic claudication
CPT/HCPCS: 72148

== ENCOUNTER → 2023-06-10 13:26 | Outpatient (CLI) | payer MEDICARE, MEDICAID, SELFPAY ==
--- NOTE | 2023-06-10 13:31 | DI.RAD.S_ITS ---
PROCEDURE: XR LUMBAR SPINE MIN 4V INDICATIONS: LOW BACK PAIN TECHNIQUE: 5 views of the lumbar spine were acquired, including bilateral oblique views. COMPARISON: [facility], , L-SPINE 2-3 VIEWS, 07/28/2009, 18:29. FINDINGS: Bones: There are 5 lumbar type vertebral bodies. Vertebral body heights are generally well maintained. No traumatic subluxation. Overall moderate degenerative changes with osteophytes, facet arthropathy, disc space height loss. The oblique images limited by overlapping bowel gas, no obvious pars defects. There is leftward mid to lower lumbar spinal curvature. Soft tissues: No suspicious calcifications. Hip degenerative changes partially seen. IMPRESSION: Moderate degenerative changes, leftward spinal curvature. Findings are progressed compared to 2008. Is macro derangement Dictated by: Francisco Hubbard M.D. on 06/10/2023 at 15:23 Approved by: Francisco Hubbard M.D. on 06/10/2023 at 15:24
== END ==
PROVIDERS: PCP Internal Medicine; Referring Provider Anesthesiology; Visit Provider Anesthesiology
DX: M47.816 Spondylosis without myelopathy or radiculopathy, lumbar region (principal); M54.50 Low back pain, unspecified; M51.36 Other intervertebral disc degeneration, lumbar region; M53.3 Sacrococcygeal disorders, not elsewhere classified; G89.29 Other chronic pain; G58.8 Other specified mononeuropathies
CPT/HCPCS: 72110; 99214

== ENCOUNTER 2023-07-03 14:56 | Outpatient (CLI) | payer MEDICARE, MEDICAID, SELFPAY ==
--- NOTE | 2023-07-03 15:01 | DI.RAD.S_ITS ---
PROCEDURE: PAIN PERIPHERAL NRV BLK OTHER INDICATIONS: CLUNEAL NEURALGIA COMPARISON: None. FINDINGS: Fluoroscopic spot filming was performed to verify placement of spinal needles at the level of right iliac crest as labeled on the films. Appropriate location(s) of the needle tip(s) was confirmed by injection of iodinated contrast. IMPRESSION: Fluoro guidance was provided intraoperatively for right superior cluneal nerve injection performed by the ordering physician. Dictated by: Scott Kelly M.D. on 07/03/2023 at 16:49 Approved by: Scott Kelly M.D. on 07/03/2023 at 16:51
[2023-07-03 15:05] VITALS: BP 170/86; PULSE 76; RESP 15; TEMP 36.5; O2SAT 94
[2023-07-03 15:29] VITALS: BP 164/89; PULSE 73; RESP 14; O2SAT 98
[2023-07-03] MEDS: BUPIVACAINE 0.5% (PF) 10 ML VIAL 5 ML INJ (15:30)
[2023-07-03] MEDS: methylPREDNISolone acet DEPO 40 MG/ML VIAL INJ (15:31)
[2023-07-03] MEDS: IOPAMIDOL 15 ML VIAL 3 ML INJ (15:31)
[2023-07-03 15:34] VITALS: BP 167/84; PULSE 68; RESP 15; O2SAT 99
[2023-07-03 15:39] VITALS: BP 156/81; PULSE 66; RESP 15; O2SAT 99
[2023-07-03 15:46] VITALS: BP 173/77; PULSE 66; RESP 18; O2SAT 97
--- NOTE | 2023-07-03 16:26 | P.PCN_ITS ---
Date/Time/Diagnoses Date of procedure: 07/03/23 Time of procedure: 15:30 Procedure Notes Physician: Ernesto Sandy Total Fluoroscopy time (seconds): 16 Total sedation minutes: 0 Procedure in detail & Post-procedure care: Right Cluneal Nerve Injection Indications: Sonali is presenting for treatment of cluneal neuralgia with low back and buttock pain. Preoperative diagnosis: Right cluneal neuralgia Postoperative diagnosis: Same Focused Examination: Ax3 Mood and affect are normal Vital Signs: VSS Consent: Following review of allergies and potential side effects/complications, including, but not necessarily limited to, infection, allergic reaction, local tissue breakdown, stroke, temporary or permanent nerve injury, paralysis, and possible , the patient indicated that they understood and agreed to proceed.? An informed consent document was signed by the patient, witnessed by a nurse and placed in the patient's chart.? Additionally, other treatment options including medications and physical therapy were reviewed with the patient. All questions were answered. Site was then marked. Anesthesia: Local Position: Prone Monitoring: NIBP, Pulse oximetry, 3 lead EKG Needle used: 25 gauge, 3.5 inch spinal needle x3 Contrast: Isovue 300-M 3mL Injectate: Depomedrol 40mg with 8 mL 0.5% Bupivacaine - 3 mL per site Technique: The skin was prepped with chloraprep and then draped in a sterile fashion. Time out was performed as per protocol. Oxygen applied via NC. Midline of the spine was identified using fluoroscopy. The skin was measured 8 cm from midline and sterile mony placed on the skin delineating the superior aspect of the iliac crest on the right. Two romero were subsequently made 2 cm medial and 2 cm lateral for a total of 3 target sites. Skin and subcutaneous structures of the needle entry sites were then infiltrated with 5 mL of lidocaine 1%. Under AP and contralateral oblique control, the needle was guided to the superior aspect of the iliac crest in the 3 locations. Contrast was injected and the spread was consistent with appropriate needle location. There was no evidence for intravascular uptake. After negative aspiration, the above-mentioned injectate was then slowly administered and the needles withdrawn. The patient expressed no unusual discomfort or paresthesias during needle positioning or injection. Band- Aids applied to injection sites. EBL: less than 1 ml Complications: None Post Procedure: Patient was taken to the recovery and monitored. The patient was provided a Pain Log to continue to record the patient's response to the target- specific procedure prior to the patient's follow-up visit with the referring physician. Patient was stable upon discharge. Detailed post procedure instructions were provided. Patient was asked to call in the event of worsening pain, fever, weakness, numbness or bladder/bowel incontinence.
== END 2023-07-03 15:57 | disposition home or self-care (01) ==
PROVIDERS: PCP Internal Medicine; Referring Provider Anesthesiology; Visit Provider Anesthesiology
DX: G58.8 Other specified mononeuropathies (principal)
CPT/HCPCS: 64450; J1030; J2250

== ENCOUNTER → 2023-11-01 16:16 | Outpatient (CLI) | payer MEDICARE, MEDICAID, SELFPAY ==
--- NOTE | 2023-11-01 16:18 | DI.MRI.S_ITS ---
PROCEDURE: MR LUMBAR SPINE WO CON INDICATIONS: bilateral sciatica TECHNIQUE: Noncontrast sagittal T1 spin echo and T2 fast echo, sagittal STIR, and T2 fast spin echo through the lumbar spine. In cases with scoliosis, additional coronal T2 fast spin echo may be performed. COMPARISON: [facility], MR, MR LUMBAR SPINE WO CON, 04/02/2023, 17:29. FINDINGS: Image quality: Diagnostic Alignment: There is slight leftward spinal curvature. No spondylolisthesis. Marrow: No acute fracture. Multilevel disc desiccation. Scattered Modic changes, for example at L1 superiorly and L5-S1. Cord: Terminates at thoracolumbar junction, normal positioning. Cauda equina nerve roots are unremarkable. Soft tissues: Scattered renal cysts. No paravertebral soft tissue collection. Specific levels: L1-L2: Yojv-oq-boosiglr disc bulge. Mild facet arthropathy. Mild narrowing at the right subarticular recess. No stenosis. L2-L3: Kwqc-cv-glnlpsfg ravp-yy-qnitrraj diffuse disc bulge, facet arthropathy, and narrowing of the right subarticular recess, as before. Mild left neural foraminal narrowing. L3-L4: Moderate facet arthropathy and diffuse disc bulge. There is ligamentum hypertrophy. Moderate central narrowing affecting both subarticular recesses. Mild to moderate bilateral neural foraminal narrowing. L4-L5: Moderate facet arthropathy. Diffuse disc bulge. Ligamentum hypertrophy. Menv-kx-uqlhzmml central narrowing affecting both subarticular recesses. Mild bilateral neural foraminal narrowing. L5-S1: Moderate facet arthropathy, and diffuse disc bulge with a small central protrusion. Moderate left foraminal narrowing. Left posterior decompression. Mild right neural foraminal narrowing. IMPRESSION: Overall tlto-qs-zzvzefuu spondylotic changes as above, similar compared to March 2023. The worst level is L3-L4. Dictated by: Francisco Hubbard M.D. on 11/05/2023 at 11:45 Approved by: Francisco Hubbard M.D. on 11/05/2023 at 11:51
== END ==
LOC: MRI 16:17
PROVIDERS: PCP Internal Medicine; Referring Provider Internal Medicine; Visit Provider Internal Medicine
DX: M47.26 Other spondylosis with radiculopathy, lumbar region (principal); M47.27 Other spondylosis with radiculopathy, lumbosacral region; M48.061 Spinal stenosis, lumbar region without neurogenic claudication; M51.16 Intervertebral disc disorders with radiculopathy, lumbar region; M51.17 Intervertebral disc disorders with radiculopathy, lumbosacral region; M48.07 Spinal stenosis, lumbosacral region; M54.9 Dorsalgia, unspecified; G89.29 Other chronic pain
CPT/HCPCS: 72148

== ENCOUNTER → 2024-01-17 15:59 | Outpatient (CLI) | payer MEDICARE, MEDICAID, SELFPAY ==
[2024-01-20 14:32] LABS: Candida species Negative (Negative); Gardnerella vaginalis Negative (Negative); Trichomoas vaginalis Negative (Negative)
== END ==
PROVIDERS: PCP Internal Medicine; Visit Provider Obstetrics & Gynecology
DX: N89.8 Other specified noninflammatory disorders of vagina (principal)
CPT/HCPCS: 87480; 87510; 87660

== ENCOUNTER → 2024-03-02 16:25 | Outpatient (CLI) | payer MEDICARE, MEDICAID, SELFPAY ==
--- NOTE | 2024-03-02 16:27 | DI.US.S_ITS ---
PROCEDURE: US PELVIC COMPLETE INDICATIONS: Bloating and cramping TECHNIQUE: Real-time scanning was performed of the pelvic organs, with image documentation. Additional endovaginal scanning was necessary due to incomplete visualization of the adnexal and endometrial structures by transabdominal scanning. COMPARISON: [facility], US, US PELVIC COMPLETE, 05/18/2022, 15:22. FINDINGS: Uterus: Uterus is anteverted and normal in size at 7.1 x 5.0 x 3.1 cm. The myometrium is heterogeneous with calcifications and possible arcuate morphology. The endometrium measures 4 mm combined thickness. No uterine fibroids. Ovaries: The right ovary measures 2.2 x 1.7 x 1.0 cm, with a calculated ovarian volume of 2.0 cc. The left ovary is not seen. Normal appearance of the right ovary. Other: No pathologic free abdominal or pelvic fluid. IMPRESSION: No cause for patient's symptoms is identified. Possible arcuate uterine morphology. Otherwise, age-appropriate appearance of the uterus and right ovary. The left ovary is not seen. We strive to produce accurate, complete, and clear reports of imaging services. To assist us in improving patient care, this report was composed using standard report templates and voice recognition software. Therefore, it may contain abnormal punctuation, insertions and/or omissions. Occasional wrong-word or sound-alike substitutions may occur. Though we review the report and make efforts to correct it, we do recommend that the report be read carefully in proper context to recognize any text inaccuracies. Dictated by: Carrillo Dang M.D. on 03/03/2024 at 8:08 Approved by: Carrillo Dang M.D. on 03/03/2024 at 8:10
== END ==
PROVIDERS: PCP Internal Medicine; Referring Provider Specialist; Visit Provider Specialist
DX: R14.0 Abdominal distension (gaseous) (principal); R10.9 Unspecified abdominal pain
CPT/HCPCS: 76856

== ENCOUNTER → 2024-03-11 16:10 | Outpatient (CLI) | payer MEDICARE, MEDICAID, SELFPAY ==
[2024-03-11 18:21] LABS: Hematocrit 40.7 % (36-46); Hemoglobin 14.2 g/dL (12.0-16.0); Mean Corpuscular HGB Conc 34.8 % (30-36); Mean Corpuscular Volume 91.9 fL (80-100); Platelet Count 203 X10^3/uL (150-400); Red Blood Cell Count 4.43 X10^6/uL (4.0-5.2); Red Cell Distribution Width 13.3 % (11.6-14.8); White Blood Cell Count 6.1 X10^3/uL (4.5-11.0)
[2024-03-11 18:29] LABS: Alanine Aminotransferase 19 IU/L (<35); Albumin 4.2 g/dL (3.5-5.0); Albumin Globulin Ratio 1.4 (1.0-2.8); Alkaline Phosphatase 76 U/L (38-126); Aspartate Aminotransferase 31 IU/L (14-36); BUN Creatinine Ratio 26.1 (6-22); Bilirubin Total 1.5 mg/dL (0.2-1.3); Blood Urea Nitrogen 23 mg/dL (7-17); Calcium 9.4 mg/dL (8.4-10.2); Carbon Dioxide 25 mmol/L (22-32); Chloride 108 mmol/L (98-107); Cholesterol 218 mg/dL (140-199); Estimated Glomerular Filt Rate > 60 mL/min (>60); Globulin 2.9 g/dL (1.7-4.1); Glucose 94 mg/dL (80-110); HDL Cholesterol 85 mg/dL (40-60); HEMOLYSIS < 15 (0-50); LDL Cholesterol Calculated 119 mg/dL (<100); Sodium 138 mmol/L (137-145); Total Protein 7.1 g/dL (6.3-8.2); Triglycerides 71 mg/dL (35-150)
[2024-03-11 18:58] LABS: TSH w/ Reflex to FT4 2.89 uIU/mL (0.47-4.68)
[2024-03-11 19:17] LABS: Cancer Antigen 125 16.5 U/mL (0-35)
== END ==
PROVIDERS: PCP Internal Medicine; Referring Provider Obstetrics & Gynecology; Visit Provider Obstetrics & Gynecology
DX: R19.09 Other intra-abdominal and pelvic swelling, mass and lump (principal); E78.2 Mixed hyperlipidemia; Z86.79 Personal history of other diseases of the circulatory system
CPT/HCPCS: 36415; 80053; 80061; 84443; 85027; 86304

== ENCOUNTER → 2024-08-10 15:27 | Outpatient (CLI) | payer MEDICARE, MEDICAID, SELFPAY ==
[2024-08-10 17:24] LABS: Hematocrit 41.7 % (36-46); Hemoglobin 14.3 g/dL (12.0-16.0); Mean Corpuscular HGB Conc 34.4 % (30-36); Mean Corpuscular Volume 90.1 fL (80-100); Platelet Count 273 X10^3/uL (150-400); Red Blood Cell Count 4.63 X10^6/uL (4.0-5.2); Red Cell Distribution Width 12.8 % (11.6-14.8); White Blood Cell Count 8.9 X10^3/uL (4.5-11.0)
[2024-08-10 18:01] LABS: Alanine Aminotransferase 21 IU/L (<35); Albumin Globulin Ratio 1.1 (1.0-2.8); Alkaline Phosphatase 59 U/L (38-126); Aspartate Aminotransferase 32 IU/L (14-36); BUN Creatinine Ratio 18.8 (6-22); Bilirubin Total 1.3 mg/dL (0.2-1.3); Blood Urea Nitrogen 18 mg/dL (7-17); Calcium 9.8 mg/dL (8.4-10.2); Carbon Dioxide 22 mmol/L (22-32); Chloride 104 mmol/L (98-107); Estimated Glomerular Filt Rate > 60 mL/min (>60); Globulin 3.6 g/dL (1.7-4.1); Glucose 113 mg/dL (80-110); Potassium 3.7 mmol/L (3.4-5.1); Sodium 134 mmol/L (137-145); Total Protein 7.6 g/dL (6.3-8.2)
[2024-08-10 18:03] LABS: HEMOLYSIS 97 (0-50)
== END ==
PROVIDERS: PCP Internal Medicine; Referring Provider Internal Medicine; Visit Provider Internal Medicine
DX: Z86.79 Personal history of other diseases of the circulatory system (principal)
CPT/HCPCS: 36415; 80053; 85027

== ENCOUNTER → 2024-12-16 14:14 | Outpatient (CLI) | payer MEDICARE, MEDICAID, SELFPAY ==
--- NOTE | 2024-12-16 14:15 | DI.US.S_ITS ---
LIMITED ULTRASOUND OF RIGHT BREAST AND AXILLA: 12/16/2024 CLINICAL: Palpable right breast lump / abn mammo. Comparison is made to exam dated: 12/16/2024 mammogram - [facility]. Color flow and real-time ultrasound of the right breast 7 o'clock, 9 o'clock, 11 o'clock, and axilla regions were performed. Ivan scale images of the real-time examination were reviewed. At 11 o'clock, 5 cm from the nipple there is a simple cyst measuring 2.0 x 1.3 x 2.3 cm corresponding to area of clinical palpable concern and mammographic mass. At 9 o'clock, 6 cm from the nipple there is an irregular hypodense mass with angular margins measuring 1.1 x 0.8 x 1.5 cm. This finding corresponds to the mammographic mass. At 7 o'clock, 4 cm from the nipple there is a simple cyst measuring 0.8 x 0.4 by 0.6 cm. This finding corresponds to the mammographic mass. No abnormal lymph nodes are seen in the axilla. IMPRESSION: SUSPICIOUS 1) Right breast 1.5 cm irregular mass at 9 o'clock, 6 cm from the nipple. Finding is suspicious. Recommend ultrasound-guided core biopsy. 2) Right breast 2.3 cm simple cyst at 11 o'clock position corresponding to area of clinical palpable concern and 0.8 cm simple cyst at 7 o'clock position. Findings are benign. Findings and recommendations were discussed with the patient by Dr. Klein during today's examination. This exam was interpreted at Station ID: [id number]. Electronically Signed By: Maria Esther Rahman M.D., Ph.D. eb/:12/19/2024 14:59:56 letter sent: Biopsy Required ACR BI-RADS Category 4: Suspicious
--- NOTE | 2024-12-16 14:15 | DI.MG.S_ITS ---
BILATERAL DIGITAL DIAGNOSTIC MAMMOGRAM 3D/2D: 12/16/2024 CLINICAL: Right breast lump. No prior exams were available for comparison. The breasts are heterogeneously dense, which may obscure small masses (category c / 51-75% glandular tissue). In the right breast, there is an oval circumscribed mass at 11 o'clock anterior depth measuring 2.4 cm corresponding to area of palpable concern. In the right breast at 9 o'clock middle depth, there is a focal asymmetry measuring 1.5 cm. In the right breast at 7 o'clock middle depth, there is an oval circumscribed mass measuring 1.0 cm. No significant masses, calcifications, or other findings are seen in either breast. IMPRESSION: INCOMPLETE: NEED ADDITIONAL IMAGING EVALUATION 1. Right breast 2.4 cm oval circumscribed mass at 11 o'clock anterior depth corresponding to area of clinical palpable concern. An ultrasound is recommended for further evaluation and is scheduled to immediately follow this examination. 2. Right breast 1.5 cm focal asymmetry at 9 o'clock middle depth. An ultrasound is recommended for further evaluation and is scheduled to immediately follow this examination. 3. Right breast 1.0 cm oval circumscribed mass at 7 o'clock middle depth. Finding resembles a cyst. An ultrasound is recommended for further evaluation and is scheduled to immediately follow this examination. Based on the Tyrer Cuzick model (a risk assessment model) the patient's lifetime risk is 10.1% and her 10 year risk is 0.0%. According to the ACR, ACS, and NCCN guidelines, an annual breast MRI exam along with mammogram is recommended if the patient's lifetime risk is 20% or greater. This exam was interpreted at Station ID: [id number]. NOTE: For mammograms, a report in lay terms will be sent to the patient. Approximately 15% of breast malignancies will not be visualized mammographically. In the management of a palpable breast mass, a negative mammogram must not discourage biopsy of a clinically suspicious lesion. Electronically Signed By: Maria Esther Rahman M.D., Ph.D. eb/:12/19/2024 14:53:38 letter sent: Additional Imaging Needed ACR BI-RADS Category 0: Incomplete: Need Additional Imaging Evaluation
== END ==
PROVIDERS: PCP Internal Medicine; Referring Provider Specialist; Visit Provider Specialist
DX: R91.8 Other nonspecific abnormal finding of lung field; N63.15 Unspecified lump in the right breast, overlapping quadrants; N60.01 Solitary cyst of right breast; R92.333 Mammographic heterogeneous density, bilateral breasts
CPT/HCPCS: 76642; 77066; G0279

== ENCOUNTER 2025-03-14 15:39 | Emergency (ER) | payer MEDICARE, MEDICAID, SELFPAY ==
[2025-03-14] VITALS (10 sets, daily range): BP systolic 137–163; BP diastolic 76–86; PULSE 56–75; RESP 15–26; TEMP 37; O2SAT 95–99; BMI 29.7
--- NOTE | 2025-03-14 15:50 | DI.RAD.S_ITS ---
PROCEDURE: XR CHEST 1V INDICATIONS: Chest Pain TECHNIQUE: One view of the chest was acquired. COMPARISON: [facility], CR, XR CHEST 1V, 04/12/2022, 21:32. FINDINGS: Surgical changes and devices: None. Lungs and pleura: On this semiupright portable chest examination, no large pneumothorax or large pleural effusions are seen. No focal infiltrates are seen. Mediastinum: Mediastinal contours appear normal. Heart size is normal. Bones and chest wall: No suspicious bony lesions. Age-appropriate bony degenerative changes are seen. Overlying soft tissues appear unremarkable. IMPRESSION: No significant portable chest abnormality is seen. Dictated by: Sukumar Washburn M.D. on 03/14/2025 at 15:38 Approved by: Sukumar Washburn M.D. on 03/14/2025 at 15:38
--- NOTE | 2025-03-14 15:52 | EKG_ITS ---
[address] [address] Test Date: 2025-03-14 Pat Name: Sonali Stearns Department: Room: Gender: Female Regulatory Affairs Spec: RAJEEV : 1945 Requested By: Order Number: [id number] Reading MD: Jose Carlos Boyle MD Measurements Intervals [place] Rate: 72 P: 8 MS: 140 QRS: -16 QRSD: 76 T: 17 QT: 390 QTc: 427 Interpretive Statements Normal sinus rhythm Minimal voltage criteria for LVH, may be normal variant ( R in aVL ) Electronically Signed On 03-15-2025 7:28:30 PDT by Jose Carlos Boyle MD
[2025-03-14 16:09] LABS: Add Manual Diff / Slide Review NO; Basophils Absolute Auto 0 /uL (0-100); Basophils Percent Auto 0.7 % (0-2); Eosinophils Absolute Auto 200 /uL (0-450); Eosinophils Percent Auto 3.7 % (2-4); Hematocrit 44.1 % (36-46); Hemoglobin 15.1 g/dL (12.0-16.0); Lymphocytes Absolute Auto 1600 /uL (1100-4500); Lymphocytes Percent Auto 24.5 % (25-40); Mean Corpuscular HGB Conc 34.3 % (30-36); Mean Corpuscular Hemoglobin 31.3 PG (26-34); Mean Corpuscular Volume 91.4 fL (80-100); Monocytes Absolute Auto 800 /uL (0-900); Monocytes Percent Auto 12.7 % (3-14); Neutrophils Absolute Auto 3900 /uL (1500-7000); Neutrophils Percent Auto 58.4 % (50-75); Platelet Count 254 X10^3/uL (150-400); Red Blood Cell Count 4.83 X10^6/uL (4.0-5.2); Red Cell Distribution Width 13.1 % (11.6-14.8); White Blood Cell Count 6.7 X10^3/uL (4.5-11.0)
[2025-03-14 16:16] LABS: Prothrombin Time 11.2 SECONDS (9.4-12.5)
[2025-03-14 16:18] LABS: PTT Partial Thromboplastin Tim 35 SECONDS (25.1-36.5)
[2025-03-14 16:20] LABS: Alanine Aminotransferase 22 IU/L (<35); Albumin 4.1 g/dL (3.5-5.0); Albumin Globulin Ratio 1.3 (1.0-2.8); Alkaline Phosphatase 85 U/L (38-126); Aspartate Aminotransferase 35 IU/L (14-36); BUN Creatinine Ratio 19.8 (6-22); Bilirubin Total 1.1 mg/dL (0.2-1.3); Blood Urea Nitrogen 19 mg/dL (7-17); Calcium 9.5 mg/dL (8.4-10.2); Carbon Dioxide 24 mmol/L (22-32); Chloride 105 mmol/L (98-107); Creatine Kinase 38 U/L (30-135); Estimated Glomerular Filt Rate > 60 mL/min (>60); Globulin 3.2 g/dL (1.7-4.1); Glucose 130 mg/dL (70-99); HEMOLYSIS < 15 (0-50); Lipase 87 U/L (23-300); Magnesium 1.9 mg/dL (1.6-2.3); Potassium 4.2 mmol/L (3.4-5.1); Sodium 137 mmol/L (137-145); Total Protein 7.3 g/dL (6.3-8.2)
[2025-03-14 16:32] LABS: NT-proBNP (BNP-Adult 18+) 208 pg/mL (<450); Troponin I < 0.012 ng/mL (0.01-0.034)
--- NOTE | 2025-03-14 16:47 | ED_ITS ---
HPI - Chest Pain General Chief Complaint: Chest Pain Stated Complaint: sob, chest pain irreg heartbeat sore throat Time Seen by Provider: 03/14/25 16:21 History of Present Illness HPI narrative: Patient 79-year-old female history of vulvar intraepithelial neoplasia grade 3, breast cancer, presenting to day with upper respiratory like symptoms. She reports that for the last 4 days she has had pretty significant cough so bad that her ribs actually hurt. She denies any significant shortness of breath but does have pretty significant sore throat. No real fever or chills just generally not feeling well. No real abdominal pain no lower extremity swelling no fever. She says that she was all-over vaccine she took her home COVID test 2 days ago when it was negative Related Data Home Medications Medication Instructions Recorded Confirmed hydrocortisone acetate 1 % topical 1 applictn topical BID PRN 08/11/19 02/01/25 cream Previous Rx's Medication Instructions Recorded lidocaine 5 % topical patch 1 patch topical DAILY PRN back 12/11/24 (Lidoderm) pain #30 ea silver sulfadiazine 1 % topical 1 applic topical DAILY #20 grams 01/05/25 cream clindamycin phosphate 1 % lotion 1 applic topical BID #60 mL 01/07/25 estradiol 0.01% (0.1 mg/gram) 0.5 g vaginal 2XW #42.5 grams 01/07/25 vaginal cream hydrocodone 5 mg-acetaminophen 325 0.5 tab PO QID PRN pain #50 tabs 02/01/25 mg tablet hydrocodone 5 mg-acetaminophen 325 0.5 tab PO QID PRN pain #50 tabs 02/01/25 mg tablet hydrocodone 5 mg-acetaminophen 325 0.5 tab PO QID PRN pain #50 tabs 02/01/25 mg tablet Allergies Allergy/AdvReac Type Severity Reaction Status Date / Time gabapentin AdvReac Severe Dizziness Verified 02/01/25 15:32 Patient History Medical History Elevated blood pressure reading without diagnosis of hypertension Mixed hyperlipidemia Sacroiliac joint dysfunction of right side Lumbar degenerative disc disease Lumbar facet arthropathy Lumbar spondylosis Cluneal neuropathy Osteopenia Eczema Fever Abnormal chest xray Scoliosis Fractures Mumps Rubella [place] MRSA (methicillin resistant Staphylococcus aureus) Measles Chicken pox Recurrent sinusitis Cataracts, bilateral (~2014) Gastric ulcer History of paroxysmal supraventricular tachycardia Menopausal syndrome Allergic rhinitis Chronic, continuous use of opioids Primary osteoarthritis involving multiple joints Chronic back pain Hypothyroid Social History Smoking Status: Never smoker Smoking Status: Never smoker alcohol intake frequency: a few times a month Exam Initial Vital Signs Initial Vital Signs: Vital Signs Temperature 98.6 F 03/14/25 15:47 Pulse Rate 75 03/14/25 15:47 Respiratory Rate 18 03/14/25 15:47 Blood Pressure 162/81 H 03/14/25 15:47 Pulse Oximetry 99 03/14/25 15:47 Oxygen Delivery Method Room Air 03/14/25 15:47 GENERAL: Alert 79-year-old female appears to not feel well and in no acute distress. HEENT: Head atraumatic,EOMI, pupils reactive, face symmetric, moist mucous membranes CARDIOVASCULAR: Regular rate and rhythm without murmurs, rubs or gallops. RESPIRATORY: Breath sounds equal bilaterally, no wheezes rales or rhonchi. Coughing with deep breathing ABDOMEN: Soft, nontender. Normoactive bowel sounds all 4 quadrants. No guarding or rebound. EXTREMITIES: Normal range of motion, no clubbing or edema. Neurovascularly intact NEUROLOGICAL: Alert and oriented x4.Normal gait and speech. Cranial nerves II through XII grossly intact. SKIN: Warm, dry, no laceration, no petechiae, no rashes or lesions. Course Orders Ordered: Discontinued Medications Albuterol (Albuterol 2.5 Mg/3 Ml Neb (Adult)) 2.5 mg INH NOW ONE Stop: 03/14/25 18:05 Last Admin: 03/14/25 18:25 Dose: Not Given Documented By: MAGO Sodium Chloride (Normal Saline 0.9%) 1,000 mls @ 1,000 mls/hr IV BOLUS ONE Stop: 03/14/25 17:52 Last Infusion: 03/14/25 18:06 Dose: Infused Documented By: Admin: 03/14/25 17:03 Dose: 1,000 mls/hr Documented By: DANIEL Ketorolac Tromethamine (Ketorolac 30 Mg/Ml Vial) 15 mg IV NOW ONE Stop: 03/14/25 16:54 Last Admin: 03/14/25 17:02 Dose: 15 mg Documented By: DANIEL Vital Signs Vital signs: Vital Signs - 8 hr 03/14/25 15:47 Temperature 98.6 F Pulse Rate 75 Respiratory Rate 18 Blood Pressure 162/81 H Pulse Oximetry 99 Oxygen Delivery Method Room Air MDM - Chest Pain Lab Data 03/14/25 16:00 03/14/25 16:00 Labs: Lab Results 03/14/25 03/14/25 Range/Units 16:00 17:07 WBC 6.7 (4.5-11.0) X10^3/uL RBC 4.83 (4.0-5.2) X10^6/uL Hgb 15.1 (12.0-16.0) g/dL Hct 44.1 (36-46) % MCV 91.4 (80-100) fL MCH 31.3 (26-34) PG MCHC 34.3 (30-36) % RDW 13.1 (11.6-14.8) % Plt Count 254 (150-400) X10^3/uL Neut % (Auto) 58.4 (50-75) % Lymph % (Auto) 24.5 L (25-40) % [place] % (Auto) 12.7 (3-14) % Eos % (Auto) 3.7 (2-4) % Baso % (Auto) 0.7 (0-2) % Neut # (Auto) 3900 (0520-8970) /uL Lymph # (Auto) 1600 (8558-7720) /uL [place] # (Auto) 800 (0-900) /uL Eos # (Auto) 200 (0-450) /uL Baso # (Auto) 0 (0-100) /uL PT 11.2 (9.4-12.5) SECONDS INR 1.0 (0.9-1.3) APTT 35 (25.1-36.5) SECONDS Sodium 137 (137-145) mmol/L Potassium 4.2 (3.4-5.1) mmol/L Chloride 105 (98-107) mmol/L Carbon Dioxide 24 (22-32) mmol/L BUN 19 H (7-17) mg/dL Creatinine 0.96 (0.52-1.04) mg/dL Estimated GFR > 60 (>60) mL/min BUN/Creatinine Ratio 19.8 (6-22) Glucose 130 H (70-99) mg/dL Lactate 1.0 (0.7-2.1) mmol/L Calcium 9.5 (8.4-10.2) mg/dL Magnesium 1.9 (1.6-2.3) mg/dL Total Bilirubin 1.1 (0.2-1.3) mg/dL AST 35 (14-36) IU/L ALT 22 (<35) IU/L Alkaline Phosphatase 85 (38-126) U/L Total Creatine Kinase 38 (30-135) U/L Troponin I < 0.012 (0.01-0.034) ng/mL NT-Pro-B Natriuret Pep 208 (<450) pg/mL Total Protein 7.3 (6.3-8.2) g/dL Albumin 4.1 (3.5-5.0) g/dL Globulin 3.2 (1.7-4.1) g/dL Albumin/Globulin Ratio 1.3 (1.0-2.8) Lipase 87 (23-300) U/L SARS-CoV-2 (PCR) Negative (Negative) Influenza A (RT-PCR) Flu a negative (NEGATIVE) Influenza B (RT-PCR) Flu b negative (NEGATIVE) RSV (PCR) Negative (Negative) Group A Strep (PCR) Negative (Negative) Imaging Data Chest x-ray: Radiologist's Impression: PROCEDURE: XR CHEST 1V INDICATIONS: Chest Pain TECHNIQUE: One view of the chest was acquired. COMPARISON: [facility], , XR CHEST 1V, 04/12/2022, 21:32. FINDINGS: Surgical changes and devices: None. Lungs and pleura: On this semiupright portable chest examination, no large pneumothorax or large pleural effusions are seen. No focal infiltrates are seen. Mediastinum: Mediastinal contours appear normal. Heart size is normal. Bones and chest wall: No suspicious bony lesions. Age-appropriate bony degenerative changes are seen. Overlying soft tissues appear unremarkable. IMPRESSION: No significant portable chest abnormality is seen. Dictated by: Sukumar Washburn M.D. on 03/14/2025 at 15:38 ECG Data Attestation: I personally reviewed and interpreted this ECG as follows: Prior ECG tracings: available for review Interpretation: Normal sinus rhythm rate 72 RI interval 140 QRS [address] changes no T- wave inversion MDM Narrative Medical decision making narrative: Patient is 79-year-old female presenting today with upper respiratory like symptoms and cough ongoing for the last 4-5 days. No real fever having sore throat as well. Not hypoxic vitals are stable Blood work has been reviewed WBC 6.7 hemoglobin 15.1 hematocrit 44.1 platelets are 254, no leukocytosis no anemia Chemistry panel no electrolyte abnormality bicarb 24 no GARETT glucose 130 Lactate 1.0 Bilirubin liver enzymes within normal limits lipase normal Troponin negative Viral panel negative Strep negative Chest x-ray no acute cardiopulmonary process Patient received 1 L of IV fluids Toradol and albuterol. She was breathing a little bit better after albuterol but feeling shaky and does not want anymore. She does have pretty significant cough, however no need for antibiotics at this time. At this time supportive care only. Discharge Plan Departure Patient Disposition: Home Clinical Impression: Upper respiratory disease Instructions: DI for Viral Upper Respiratory Infection -- Adult Activity Restrictions/Additional Instructions: *You have been diagnosed with upper respiratory infection *What to do: At this time blood work and x-ray overall reassuring no need for antibiotics at this time however if you are still persistently coughing or having fevers please get re-evaluated in 1 week *Continue to take medications as directed Tylenol 1000 mg every 6 hours for [id number] *Follow up with your primary care provider in 2-3 days or call [phone] *Return to ER if you should have increasing shortness of breath fever [or] any new, worsening or concerning symptoms Prescriptions: No Action lidocaine [Lidoderm] 5 % adhesive patch,medicated 1 patch TOP DAILY PRN (Reason: back pain) Qty: 30 11RF silver sulfadiazine 1 % cream 1 applic topical DAILY Qty: 20 3RF Rx Instructions: apply a 1.5 mm thickness estradiol 0.01 % (0.1 mg/gram) cream 0.5 g vaginal 2XW Qty: 42.5 3RF hydrocortisone acetate 1 % cream 1 applictn TOP BID PRN hydrocodone-acetaminophen 5-325 mg tablet 0.5 tab PO QID PRN (Reason: pain) Qty: 50 0RF hydrocodone-acetaminophen 5-325 mg tablet 0.5 tab PO QID PRN (Reason: pain) Qty: 50 0RF hydrocodone-acetaminophen 5-325 mg tablet 0.5 tab PO QID PRN (Reason: pain) Qty: 50 0RF clindamycin phosphate 1 % lotion 1 applic topical BID Qty: 60 0RF Rx Instructions: Apply to affected area (left earlobe) after washing with soap and water for 10-14 days. Referrals: Curly Regan MD [Primary Care Provider] - Stand Alone Forms: Patient Portal/API/Survey
[2025-03-14] MEDS: KETOROLAC 30 MG/ML VIAL 15 MG IV (17:02)
[2025-03-14] MEDS: SODIUM CHLORIDE 0.9% 1,000 ML 1000 ML IV (17:03)
[2025-03-14 17:27] LABS: Strep Grp A by PCR Rapid Negative (Negative)
[2025-03-14 17:55] LABS: Influenza A - CEPHEID Flu A NEGATIVE (NEGATIVE); Influenza B - CEPHEID Flu B NEGATIVE (NEGATIVE); Respiratory Syncytial Virus Negative (Negative)
[2025-03-14 17:56] LABS: COVID-19 CEPHEID 4-PLEX PCR Negative (Negative)
== END 2025-03-14 18:53 | disposition home or self-care (01) ==
PROVIDERS: Emergency Provider Emergency Medicine; PCP Internal Medicine
DX: J06.9 Acute upper respiratory infection, unspecified (principal); R07.9 Chest pain, unspecified
CPT/HCPCS: 0241U; 36415; 71045; 80053; 82550; 83605; 83690; 83735; 83880; 84484; 85025; 85610; 85730; 87070; 87651; 93005; 93010; 96361; 96374; 99284; J1885